=== PATIENT | male | born 1970 | race Caucasian/White ===

== ENCOUNTER 2018-11-27 20:47 | Emergency (ER) | payer OTHER ==
[2018-11-27 21:05] VITALS: BP 179/84; PULSE 71; RESP 18; TEMP 98.1
--- NOTE | 2018-11-27 21:18 | XR ---
EXAMINATION TYPE: XR shoulder complete RT DATE OF EXAM: 11/27/2018 CLINICAL HISTORY: Right shoulder pain after fall TECHNIQUE: Three views of the right shoulder are obtained. COMPARISON: None. FINDINGS: There is no acute fracture/dislocation evident in the right shoulder. The acromioclavicul ar and glenohumeral joint spaces are aligned however there are small marginal osteophytes of the acro mioclavicular joint. Punctate nonspecific sclerotic focus of the humeral head most commonly relates t o a benign bone island. The visualized ribs are intact and unremarkable. IMPRESSION: There is no acute fracture or dislocation in the right shoulder. Mild acromioclavicular arthropathy.
--- NOTE | 2018-11-27 21:42 | ED ---
General Adult HPI - General Chief complaint: Extremity Injury, Upper Stated complaint: Shoulder injury Time Seen by Provider: 11/27/18 21:01 Source: patient Mode of arrival: ambulatory Limitations: no limitations - History of Present Illness Initial comments: Patient is a 48-year-old male presenting to emergency Department with a chief complaint of right shoulder pain. Patient reports he was walking and he tripped and fell forward on a fire pit Injuring his right shoulder. Patient reports pain along the lateral aspect of the deltoid muscle. Patient reports pain with abduction but is able to perform flexion and extension. Patient denies any numbness and tingling. Patient reports the pain is exacerbated with abduction alleviated at rest. Patient reports taking [id number] analgesics minimal purulent. - Related Data Previous Rx's Medication Instructions Recorded Acetaminophen-Codeine 300-30mg 1 each PO Q4H PRN #20 tablet 04/19/15 [Tylenol w/codeine #3] Naproxen [Naprosyn] 500 mg PO Q12HR #24 tab 04/19/15 Allergies Allergy/AdvReac Type Severity Reaction Status Date / Time No Known Allergies Allergy Verified 04/19/15 10:04 Review of Systems ROS Statement: Those systems with pertinent positive or pertinent negative responses have been documented in the HPI. ROS Other: All systems not noted in ROS Statement are negative. Past Medical History Past Medical History: No Reported History History of Any Multi-Drug Resistant Organisms: None Reported Past Surgical History: No Surgical Hx Reported Additional Past Surgical History / Comment(s): neck Past Psychological History: No Psychological Hx Reported Smoking Status: Current every day smoker Past Alcohol Use History: None Reported Past Drug Use History: None Reported General Exam Limitations: no limitations General appearance: alert, in no apparent distress Head exam: Present: atraumatic, normocephalic, normal inspection Eye exam: Present: normal appearance, PERRL, EOMI Pupils: Present: normal accommodation ENT exam: Present: normal exam, normal oropharynx, mucous membranes moist, TM's normal bilaterally, normal external ear exam Neck exam: Present: normal inspection, full ROM Respiratory exam: Present: normal lung sounds bilaterally Cardiovascular Exam: Present: regular rate, normal rhythm, normal heart sounds Extremities exam: Present: normal inspection, tenderness (Tenderness along the lateral aspect of the deltoid right), normal capillary refill, other (+2 ulnar and radial pulses bilaterally). Absent: full ROM (Limited range of motion with abduction of the right shoulder) Back exam: Present: normal inspection, full ROM Neurological exam: Present: alert, oriented X3 Psychiatric exam: Present: normal affect, normal mood Skin exam: Present: warm, intact, normal color Course Vital Signs 11/27/18 21:01 Temperature 98.1 F Pulse Rate 71 Respiratory 18 Rate Blood Pressure 179/84 O2 Sat by Pulse 97 Oximetry Medical Decision Making - Medical Decision Making Patient is a 48-year-old male presenting to emergency Department with a chief complaint of right shoulder pain. Mild acromioclavicular arthropathy is noted on x-ray of the right shoulder but no fracture or dislocations. Patient advised to alternate between Tylenol and ibuprofen for pain control. Patient advised to follow with orthopedics if symptoms not improved. Strict return parameters were thoroughly discussed the patient was understanding and agreeable. Case discussed physician. Disposition Clinical Impression: Shoulder pain, right Disposition: HOME SELF-CARE Condition: Stable Instructions (If sedation given, give patient instructions): Shoulder Pain (ED) Additional Instructions: Alternate between Tylenol and ibuprofen for pain control. Please follow up with orthopedics. Please return to emergency department if symptoms worsen. Is patient prescribed a controlled substance at d/c from ED?: No Referrals: None,Stated [Primary Care Provider] - 1-2 days Nahum Moody DO [Medical Doctor] - 1-2 days Time of Disposition: 21:42
== END 2018-11-27 21:58 | disposition home or self-care (01) ==
LOC: EC 20:47
DX: M19.011 Primary osteoarthritis, right shoulder (principal); F17.200 Nicotine dependence, unspecified, uncomplicated; W01.0XXA Fall on same level from slipping, tripping and stumbling without subsequent striking against object, initial encounter; Y93.89 Activity, other specified; Y92.89 Other specified places as the place of occurrence of the external cause
CPT/HCPCS: 99283

== ENCOUNTER → 2020-03-15 | Outpatient (CLI) | payer OTHER ==
--- NOTE | 2020-03-15 14:26 | MR ---
EXAMINATION TYPE: MR knee RT wo con DATE OF EXAM: 03/15/2020 COMPARISON: None HISTORY: Right knee pain TECHNIQUE: Multiplanar, multisequence images of the knee is performed .. FINDINGS: MEDIAL MENISCUS: Anterior and posterior horns are intact without tear. LATERAL MENISCUS: Anterior and posterior horns are intact without tear. CRUCIATE LIGAMENTS: The anterior and posterior cruciate ligaments are intact and unremarkable. COLLATERAL LIGAMENTS: The medial collateral ligament and lateral collateral ligament complex are inta ct and unremarkable. EXTENSOR MECHANISM: Visualized quadriceps and patellar tendons are intact. EFFUSION: No significant suprapatellar joint effusion. POPLITEAL CYST: No popliteal/randall cyst. TRICOMPARTMENT SPACES: Intact CARTILAGE: Intact BONE MARROW SIGNAL: No focal abnormal marrow signal is appreciated. OTHER: No additional significant abnormality is appreciated. IMPRESSION: No distinct abnormality appreciated.
== END | disposition home or self-care (01) ==
LOC: RADMRIMAIN 13:14
PROVIDERS: ATTEND Orthopaedic Surgery
DX: M25.561 Pain in right knee (principal)

== ENCOUNTER 2020-04-22 10:26 | Emergency (ER) | payer OTHER ==
[2020-04-22 10:32] VITALS: PULSE 82; RESP 18; TEMP 98.5
--- NOTE | 2020-04-22 11:06 | ED ---
Upper Extremity HPI - General Chief Complaint: Extremity Injury, Upper Stated Complaint: Wrist pain Time Seen by Provider: 04/22/20 10:42 Source: patient, RN notes reviewed Mode of arrival: ambulatory Limitations: no limitations - History of Present Illness Initial Comments: 49-year-old male presents emergency Department chief complaint of left wrist pa in. Patient states he woke up with this felt that he did something during his sleep. Patient states he is right-hand dominant but complains of swelling, bump on his left wrist which is severely tender. Patient denies any paresthesias no decreased strength. Patient offers no other complaints. - Related Data Previous Rx's Medication Instructions Recorded Ibuprofen [Motrin] 600 mg PO Q8HR PRN #20 tab 04/22/20 Allergies Allergy/AdvReac Type Severity Reaction Status Date / Time No Known Allergies Allergy Verified 04/22/20 10:51 Review of Systems ROS Statement: Those systems with pertinent positive or pertinent negative responses have been documented in the HPI. ROS Other: All systems not noted in ROS Statement are negative. Past Medical History Past Medical History: No Reported History Additional Past Medical History / Comment(s): Arthritis History of Any Multi-Drug Resistant Organisms: None Reported Past Surgical History: No Surgical Hx Reported Additional Past Surgical History / Comment(s): neck Past Psychological History: No Psychological Hx Reported Smoking Status: Never smoker Past Alcohol Use History: None Reported Past Drug Use History: None Reported General Exam Limitations: no limitations General appearance: alert, in no apparent distress Head exam: Present: atraumatic, normocephalic, normal inspection Eye exam: Present: normal appearance, PERRL, EOMI. Absent: scleral icterus, conjunctival injection, periorbital swelling Respiratory exam: Present: normal lung sounds bilaterally. Absent: respiratory distress, wheezes, rales, rhonchi, stridor Cardiovascular Exam: Present: regular rate, normal rhythm, normal heart sounds. Absent: systolic murmur, diastolic murmur, rubs, gallop, clicks Extremities exam: Present: other (There is tenderness with palpation of the left wrist there is a small ganglion cyst which is palpable, tender with palpation radial pulses equal bilaterally.) Course Vital Signs 04/22/20 10:27 Temperature 98.5 F Pulse Rate 82 Respiratory 18 Rate Blood Pressure 217/95 O2 Sat by Pulse 95 Oximetry - Reevaluation(s) Reevaluation #1: 04/22/20 11:06 Patient noted to have hypertension. Patient has no chest pain or shortness breath. Medical Decision Making - Medical Decision Making X-ray reviewed there is no acute osseous lesion. Patient has left wrist injury with no complaints. Patient will be discharged in stable condition return parameters were discussed. Disposition Clinical Impression: Left wrist pain, Ganglion cyst of dorsum of left wrist Disposition: HOME SELF-CARE Condition: Stable Instructions (If sedation given, give patient instructions): Ganglion Cysts (ED) Additional Instructions: Please return to the Emergency Department if symptoms worsen or any other concerns. Prescriptions: Ibuprofen [Motrin] 600 mg PO Q8HR PRN #20 tab PRN Reason: Pain Is patient prescribed a controlled substance at d/c from ED?: No Referrals: Augusta Shah MD [Primary Care Provider] - 1-2 days Kade Crabtree DO [Doctor of Osteopathic Medicine] - 1-2 days Time of Disposition: 11:23
--- NOTE | 2020-04-22 11:13 | XR ---
EXAMINATION TYPE: XR wrist complete LT DATE OF EXAM: 04/22/2020 CLINICAL HISTORY: Left wrist pain. TECHNIQUE: Frontal, lateral and oblique images of the left wrist are obtained. 4 view scaphoid view is performed. COMPARISON: None FINDINGS: There is no acute fracture/dislocation evident in the left wrist. The joint spaces in the left wrist appear within normal limits. The overlying soft tissue appears unremarkable. No suspicio us focal osseous lytic or sclerotic lesion is IMPRESSION: As above.
[2020-04-22 11:51] VITALS: BP 158/88
== END 2020-04-22 11:51 | disposition home or self-care (01) ==
LOC: EC 10:26
DX: M67.432 Ganglion, left wrist (principal); S69.92XA Unspecified injury of left wrist, hand and finger(s), initial encounter; X58.XXXA Exposure to other specified factors, initial encounter
CPT/HCPCS: 99283

== ENCOUNTER 2020-06-06 10:52 | Day surgery (SDC) | payer OTHER ==
[2020-06-04 12:56] VITALS: BMI 34.7
--- NOTE | 2020-06-05 17:59 | HP ---
HISTORY AND PHYSICAL DATE OF SURGERY: 06/06/2020 Abby Deluca is a 49-year-old gentleman seen with progressive right knee pain. After treatment options were discussed, he elected to proceed with arthroscopy. Consent was obtained. PAST MEDICAL HISTORY: Asthma. PAST SURGICAL HISTORY: Noncontributory. DAILY MEDICATIONS: Ibuprofen. ALLERGIES: NONE. SOCIAL HISTORY: He denies tobacco use. PHYSICAL EVALUATION OF THE RIGHT KNEE: Range of motion is zero to 130. Mild effusion. Tenderness, medial joint line. Positive medial Taj's. Ligaments stable. Hip rotation without pain. Distal neurovascular exam intact. RADIOGRAPHS: Radiographs of the right knee revealed mild osteoarthritis. MRI of the right knee revealed no abnormality. IMPRESSION: 1. Internal derangement of the right knee with osteochondral tear. 2. Asthma. PLAN: Right knee arthroscopy with chondroplasty and debridement. MMODL / IJN: [id number] /
[~2020-06-06 10:52] MED LIST: DEXAMETHASONE SOD PHOSPHATE 4 MG/ML 1 ML VIAL IV ONE; HYDROmorphone 0.5 MG/0.5 ML SYRINGE IVP PRN; LACTATED RINGERS 1,000 ML IV SCH; ONDANSETRON 4 MG/2 ML VIAL IVP ONE
[2020-06-06] MEDS ORDERED: LIDOCAINE 1% (10MG/ML) FOR IV START INTRADERMA ONE (11:41)
[2020-06-06] MEDS ORDERED: LIDOCAINE 1% INJ 10MG/ML (20 ML MDV) ONE (13:07)
[2020-06-06] MEDS ORDERED: MIDAZOLAM 2 MG/2 ML VIAL ONE (13:07)
[2020-06-06] MEDS ORDERED: PROPOFOL 10 MG/ML 20 ML VIAL IV ONE (13:07)
[2020-06-06] MEDS ORDERED: fentaNYL (PF) 50 MCG/ML 2 ML AMP ONE (13:07)
[2020-06-06] MEDS ORDERED: SUCCINYLCHOLINE CHLORIDE 100 MG/5 ML SYR IV ONE (13:07)
[2020-06-06] MEDS ORDERED: BUPIVACAINE (PF) 0.25% 30 ML VIAL INTRAARTIC ONE (13:28)
[2020-06-06 14:03] VITALS: TEMP 98.3
[2020-06-06] MEDS ORDERED: KETOROLAC 15 MG/ML 1 ML VIAL IVP ONE (14:03)
--- NOTE | 2020-06-06 14:06 | P.OP ---
Date of Procedure: 06/06/20 Preoperative Diagnosis: Internal derangement right knee Postoperative Diagnosis: 1. Tear lateral meniscus right knee 2. Grade 4 chondromalacia lateral femoral condyle right knee 3. Reactive synovitis medial, lateral and suprapatellar compartments right knee Procedure(s) Performed: 1. Arthroscopic partial lateral meniscectomy right knee 2. Arthroscopic chondroplasty lateral femoral condyle right knee 3. Arthroscopic microfracture lateral femoral condyle right knee 4. Arthroscopic partial synovectomy medial, lateral and suprapatellar compartments right knee Anesthesia: JOVAN, local Surgeon: Georgi Davis Estimated Blood Loss (ml): 7 Pathology: none sent Condition: stable Disposition: PACU Indications for Procedure: 49-year-old patient seen with progressive right knee pain. After having treatment options discussed, he elected to proceed with arthroscopy. Operative Findings: See description of procedure Description of Procedure: Patient was taken to the operative suite. Patient underwent a general anest hetic by the department of anesthesia. Patient was given preoperative antibiotics. The right lower extremity was placed in a well-padded arthroscopic leg tanner. The right leg was prepped and draped in the normal sterile orthopedic fashion. A lateral parapatellar and suprapatellar incision was made. Trochars were inserted. Arthroscopy was initiated. Suprapatellar pouch revealed diffuse thick reactive synovitis. The patellofemoral joint appeared to articulate congruently. There was no chondromalacia present of the patellofemoral sulcus. The scope was guided into the medial gutter. No loose bodies or plica were identified. The scope was then guided into the medial compartment. A medial parapatellar incision was made. Trocar inserted followed by probe. Medial meniscus was probed and found to be stable. There was some reactive synovitis anteriorly. There was no chondromalacia present. I introduced a motorized shaver and performed a partial synovectomy. There appeared be good decompression of the synovitis. Scope and probe were then guided into the intercondylar notch. Cruciates were identified, probed and found to be stable. The scope and probe were then guided into lateral compartment. There was a radial tear mid body lateral meniscus. There was an area of grade 3/4 chondromalacia weightbearing surface lateral femoral condyle. This measured approximately 1 cm diameter. There was thick reactive synovitis anteriorly. I performed a partial lateral meniscectomy. I performed a partial synovectomy decompressing the reactive synovitis. I performed a chondroplasty lateral femoral condyle. The residual meniscus was stable. There was good decompression synovitis. In that area of chondromalacia I did see a small area of exposed bone centrally. I performed a microfracture that area penetrating the bone with resultant bleeding at the microfracture site. The residual osteochondral surface remained stable. The scope was in guided back into the suprapatellar compartment. I introduced a motorized shaver into the superpatellar compartment. I performed a partial synovectomy. Shaver was removed. There was good decompression synovitis. Instruments were now removed from the joint. The joint was infiltrated with .25% Marcaine. Steri-Strips were applied to the portal sites. Sterile dressings were applied. The patient was placed into a BITA hose. No tourniquet was utilized. The patient was awakened, transferred to a bed and taken to recovery stable satisfactory condition.
[2020-06-06] MEDS ORDERED: LACTATED RINGERS 1,000 ML IV ONE (14:25)
[2020-06-06] MEDS ORDERED: HYDROcodone/APAP 7.5-325MG 1 EACH TAB ONE (14:51)
[2020-06-06] MEDS ORDERED: HYDROcodone/APAP 7.5-325MG 1 EACH TAB PO ONE (14:53)
[2020-06-06 15:19] VITALS: BP 123/58; PULSE 73; RESP 16
== END 2020-06-06 15:49 | disposition home or self-care (01) ==
LOC: OR 10:52
PROVIDERS: ATTEND Orthopaedic Surgery
DX: M23.200 Derangement of unspecified lateral meniscus due to old tear or injury, right knee (principal); M94.261 Chondromalacia, right knee; M65.862 Other synovitis and tenosynovitis, left lower leg; J45.909 Unspecified asthma, uncomplicated; Z87.891 Personal history of nicotine dependence; Z79.1 Long term (current) use of non-steroidal anti-inflammatories (NSAID); Z79.899 Other long term (current) drug therapy
CPT/HCPCS: 29881; 29879; 29876; J2250; J1100; J0690; J2405; J2001; J3010; J1885; J0330; J2704

== ENCOUNTER 2021-02-05 14:16 | Emergency (ER) | payer OTHER ==
[2021-02-05] MEDS ORDERED: SODIUM CHLORIDE 0.9% 1,000 ML IV STA (17:41)
[2021-02-05] MEDS ORDERED: MORPHINE SULFATE 4 MG/ML SYRINGE IV STA (17:41)
[2021-02-05 18:30] LABS: Calcium 8.7 mg/dL (8.4-10.2); Potassium 3.9 mmol/L (3.5-5.1); Total Bilirubin 0.7 mg/dL (0.2-1.3)
[2021-02-05 18:34] LABS: Basophils % (A) 1 %; Eosinophils # (A) 0.1 k/uL (0-0.7); Eosinophils % (A) 2 %; HCT 40.3 % (39.0-53.0); HGB 14.4 gm/dL (13.0-17.5); Hyperchromasia Slight; Lymphocytes # (A) 0.6 k/uL (1.0-4.8); Lymphocytes % (A) 15 %; MCH 31.6 pg (25.0-35.0); MCHC 35.7 g/dL (31.0-37.0); MCV 88.5 fL (80.0-100.0); Mean Platelet Volume 7.8; Monocytes # (A) 0.7 k/uL (0-1.0); Monocytes % (A) 16 %; Neutrophils # (A) 2.7 k/uL (1.3-7.7); Neutrophils % (A) 64 %; Platelet Count 209 k/uL (150-450); RBC 4.55 m/uL (4.30-5.90); RDW 13.2 % (11.5-15.5); WBC 4.2 k/uL (3.8-10.6)
[2021-02-05 18:46] LABS: Appearance,Urine Clear (Clear); Bilirubin,Urine Negative (Negative); Blood,Urine Negative (Negative); Color,Urine Yellow; Glucose,Urine (UA) Negative (Negative); Ketones,Urine Negative (Negative); Leukocyte Esterase,Urine Negative (Negative); Nitrite,Urine Negative (Negative); Protein,Urine Negative (Negative); Specific Gravity,Urine 1.013 (1.001-1.035); Urobilinogen,Urine <2.0 mg/dL (<2.0)
[2021-02-05] MEDS ORDERED: IBUPROFEN 600 MG TAB PO STA (18:53)
[2021-02-05] MEDS ORDERED: ACETAMINOPHEN TAB 500 MG TAB PO STA (18:53)
--- NOTE | 2021-02-05 18:53 | CT ---
EXAMINATION TYPE: CT abdomen pelvis wo con DATE OF EXAM: 02/05/2021 COMPARISON: None HISTORY: Right flank pain, fever. CT DLP: 875.7 mGycm Automated exposure control for dose reduction was used. Images obtained from the diaphragm to the floor the pelvis with no contrast. Lung bases are clear. There is no pleural effusion. Heart size is normal. There is no pericardial eff usion. Liver spleen stomach pancreas gallbladder appear intact. Bile ducts are not dilated. There is no adrenal mass. Kidneys show normal size and contour. There is no hydronephrosis. Ureters a re not dilated. There is no retroperitoneal adenopathy. There is no evidence of thickened appendix. There is no mesenteric edema. There is no ascites or free air. There is no bowel obstruction. There is no evidence of a pelvic mass. Bladder distends smoothly. There is no inguinal hernia. There is tiny amount of free fluid in the pelvis. The lumbar vertebra have normal alignment. Posterior elements are intact. There is no compression fra cture. Bony pelvis is intact. The hip joints are intact. IMPRESSION: There is tiny amount of low-density free fluid in the pelvis of uncertain significance. No focal inte stinal abnormality identified. No evidence of renal stone or obstruction. No sign of appendicitis.
--- NOTE | 2021-02-05 18:55 | ED ---
General Adult HPI - General Chief complaint: Back Pain/Injury Stated complaint: Kidney pain Time Seen by Provider: 02/05/21 17:11 Source: patient Mode of arrival: ambulatory Limitations: no limitations - History of Present Illness Initial comments: 50-year-old male presents to the emergency room for a chief complaint of right lower back pain. Patient states this started today. States it does hurt with movement. Patient states he was concerned he had a kidney infection or kidney stone. Patient denies fevers or chills however states he was exposed to [place] virus this week by a family member. Patient denies bladder or bowel changes, saddle anesthesia, weakness of the legs. Patient denies any history of IV drug abuse.Patient has no other complaints at this time including shortness of breath, chest pain, abdominal pain, nausea or vomiting, headache, or visual changes. - Related Data Home Medications Medication Instructions Recorded Confirmed Lisinopril [Prinivil] 10 mg PO DAILY 06/04/20 06/06/20 Previous Rx's Medication Instructions Recorded Ibuprofen [Motrin] 600 mg PO Q8HR PRN #20 tab 04/22/20 HYDROcodone/APAP 7.5-325MG [Grover 1 each PO Q6HR PRN #15 tab 06/06/20 7.5] Allergies Allergy/AdvReac Type Severity Reaction Status Date / Time No Known Allergies Allergy Verified 02/05/21 15:42 Review of Systems ROS Statement: Those systems with pertinent positive or pertinent negative responses have been documented in the HPI. ROS Other: All systems not noted in ROS Statement are negative. Past Medical History Past Medical History: Hypertension Additional Past Medical History / Comment(s): arthritis History of Any Multi-Drug Resistant Organisms: None Reported Past Surgical History: No Surgical Hx Reported Additional Past Surgical History / Comment(s): neck surgery Past Psychological History: No Psychological Hx Reported Smoking Status: Never smoker Past Alcohol Use History: None Reported Past Drug Use History: None Reported General Exam Limitations: no limitations General appearance: alert, in no apparent distress Head exam: Present: atraumatic Eye exam: Present: normal appearance, PERRL, EOMI ENT exam: Present: normal exam, mucous membranes moist Neck exam: Present: normal inspection, full ROM. Absent: tenderness Respiratory exam: Present: normal lung sounds bilaterally. Absent: respiratory distress, wheezes Cardiovascular Exam: Present: regular rate, normal rhythm, normal heart sounds GI/Abdominal exam: Present: soft, normal bowel sounds. Absent: distended, tenderness Back exam: Absent: CVA tenderness (R), CVA tenderness (L) Neurological exam: Present: alert Course Vital Signs 02/05/21 15:42 Temperature 100.5 F H Pulse Rate 82 Respiratory 20 Rate Blood Pressure 144/69 O2 Sat by Pulse 96 Oximetry Medical Decision Making - Medical Decision Making Vitals are stable however patient does have a fever of 100.5. Patient has right-sided low back pain. No midline pain. No red flag symptoms. Fever can be attributed to patient's positive coronavirus testing as he was exposed this week. CBC CMP and a remarkable. White count is normal. Urinalysis does not show any evidence of infection. There is no evidence of renal stone or obstruction on CT. At this time discussed antibody infusion and patient does agree to this. Patient likely is mechanical back pain as well as coronavirus causing fever. He will be discharged home with strict return parameters. - Lab Data Result diagrams: 02/05/21 18:02 02/05/21 18:02 Lab Results 02/05/21 02/05/21 02/05/21 Range/Units 18:02 18:02 18:02 WBC 4.2 (3.8-10.6) k/uL RBC 4.55 (4.30-5.90) m/uL Hgb 14.4 (13.0-17.5) gm/dL Hct 40.3 (39.0-53.0) % MCV 88.5 (80.0-100.0) fL MCH 31.6 (25.0-35.0) pg MCHC 35.7 (31.0-37.0) g/dL RDW 13.2 (11.5-15.5) % Plt Count 209 (150-450) k/uL MPV 7.8 Neutrophils % 64 % Lymphocytes % 15 % Monocytes % 16 % Eosinophils % 2 % Basophils % 1 % Neutrophils # 2.7 (1.3-7.7) k/uL Lymphocytes # 0.6 L (1.0-4.8) k/uL Monocytes # 0.7 (0-1.0) k/uL Eosinophils # 0.1 (0-0.7) k/uL Basophils # 0.0 (0-0.2) k/uL Hyperchromasia Slight Sodium 134 L (137-145) mmol/L Potassium 3.9 (3.5-5.1) mmol/L Chloride 102 (98-107) mmol/L Carbon Dioxide 24 (22-30) mmol/L Anion Gap 8 mmol/L BUN 14 (9-20) mg/dL Creatinine 1.20 (0.66-1.25) mg/dL Est GFR (CKD-EPI)AfAm 81 (>60 ml/min/1.73 sqM) Est GFR (CKD-EPI)NonAf 70 (>60 ml/min/1.73 sqM) Glucose 127 H (74-99) mg/dL Calcium 8.7 (8.4-10.2) mg/dL Total Bilirubin 0.7 (0.2-1.3) mg/dL AST 25 (17-59) U/L ALT 28 (4-49) U/L Alkaline Phosphatase 68 (38-126) U/L Total Protein 7.0 (6.3-8.2) g/dL Albumin 4.0 (3.5-5.0) g/dL Urine Color Urine Appearance (Clear) Urine pH (5.0-8.0) Ur Specific [place] (1.001-1.035) Urine Protein (Negative) Urine Glucose (UA) (Negative) Urine Ketones (Negative) Urine Blood (Negative) Urine Nitrite (Negative) Urine Bilirubin (Negative) Urine Urobilinogen (<2.0) mg/dL Ur Leukocyte Esterase (Negative) Coronavirus (PCR) Detected A (Not Detectd) 02/05/21 Range/Units 18:43 WBC (3.8-10.6) k/uL RBC (4.30-5.90) m/uL Hgb (13.0-17.5) gm/dL Hct (39.0-53.0) % MCV (80.0-100.0) fL MCH (25.0-35.0) pg MCHC (31.0-37.0) g/dL RDW (11.5-15.5) % Plt Count (150-450) k/uL MPV Neutrophils % % Lymphocytes % % Monocytes % % Eosinophils % % Basophils % % Neutrophils # (1.3-7.7) k/uL Lymphocytes # (1.0-4.8) k/uL Monocytes # (0-1.0) k/uL Eosinophils # (0-0.7) k/uL Basophils # (0-0.2) k/uL Hyperchromasia Sodium (137-145) mmol/L Potassium (3.5-5.1) mmol/L Chloride (98-107) mmol/L Carbon Dioxide (22-30) mmol/L Anion Gap mmol/L BUN (9-20) mg/dL Creatinine (0.66-1.25) mg/dL Est GFR (CKD-EPI)AfAm (>60 ml/min/1.73 sqM) Est GFR (CKD-EPI)NonAf (>60 ml/min/1.73 sqM) Glucose (74-99) mg/dL Calcium (8.4-10.2) mg/dL Total Bilirubin (0.2-1.3) mg/dL AST (17-59) U/L ALT (4-49) U/L Alkaline Phosphatase (38-126) U/L Total Protein (6.3-8.2) g/dL Albumin (3.5-5.0) g/dL Urine Color Yellow Urine Appearance Clear (Clear) Urine pH 6.0 (5.0-8.0) Ur Specific [place] 1.013 (1.001-1.035) Urine Protein Negative (Negative) Urine Glucose (UA) Negative (Negative) Urine Ketones Negative (Negative) Urine Blood Negative (Negative) Urine Nitrite Negative (Negative) Urine Bilirubin Negative (Negative) Urine Urobilinogen <2.0 (<2.0) mg/dL Ur Leukocyte Esterase Negative (Negative) Coronavirus (PCR) (Not Detectd) Disposition Clinical Impression: COVID-19, Mechanical back pain Disposition: HOME SELF-CARE Condition: Good Instructions (If sedation given, give patient instructions): Acute Low Back Pain (ED), Coronavirus Disease 2019 (COVID-19) Additional Instructions: Please take vitamin C, D, and zinc [id number]. Drink plenty of fluids. Take Tylenol for fevers. If this does not help he can add Motrin. Follow-up with your doctor. If you have worsening symptoms of shortness of breath return to the emergency room. Is patient prescribed a controlled substance at d/c from ED?: No Referrals: Augusta Shah MD [Primary Care Provider] - 1-2 days Time of Disposition: 18:56
[2021-02-05] MEDS ORDERED: CASIRIVIMAB (REGN10933) (EUA) 600 MG, IMDEVIMAB (REGN10987) (EUA) 600 MG in SODIUM CHLO... IVPB ONE (19:30)
[2021-02-05] MEDS ORDERED: SODIUM CHLORIDE 0.9% 50 ML IVPB ONE (20:00)
[2021-02-05 21:17] VITALS: BP 145/88; PULSE 88; RESP 19; TEMP 98.8
== END 2021-02-05 21:17 | disposition home or self-care (01) ==
LOC: EC 14:16
DX: U07.1 COVID-19 (principal); I10 Essential (primary) hypertension; Z87.442 Personal history of urinary calculi
CPT/HCPCS: 99284 ×2; 96365; 96375 ×2; 96361 ×2; 36415; 80053; 85025; 81003; 87635; 74176; M0243; J2270; Q0243

== ENCOUNTER 2021-05-01 08:33 | Emergency (ER) | payer OTHER ==
[2021-05-01 08:39] VITALS: TEMP 98.7
[2021-05-01] MEDS ORDERED: IPRATROPIUM-ALBUTEROL 3 ML NEB INHALATION STA (09:09)
--- NOTE | 2021-05-01 09:22 | ED ---
URI HPI - General Chief Complaint: Upper Respiratory Infection Stated Complaint: JODIE Time Seen by Provider: 05/01/21 08:42 Source: patient, RN notes reviewed Mode of arrival: ambulatory Limitations: no limitations - History of Present Illness Initial Comments: Is a 50-year-old male presents emergency Department with chief complaint of cough congestion. Patient states started last few days. He has increasing nasal congestion, sore throat and productive cough. Patient states it: Depression 3 months ago. He reports no recent fever or chills mild body aches. Patient states she's felt short of breath with no chest pain or palpitations. Patient is a former smoker does have a history of asthma. - Related Data Home Medications Medication Instructions Recorded Confirmed Lisinopril [Prinivil] 10 mg PO DAILY 06/04/20 05/01/21 Diclofenac Sodium [Voltaren] 75 mg PO BID 05/01/21 05/01/21 Pantoprazole [Protonix] 40 mg PO DAILY 05/01/21 05/01/21 Previous Rx's Medication Instructions Recorded Albuterol Sulfate [Proair Hfa] 1 - 2 puff INHALATION Q4HR PRN 05/01/21 #8.5 gm Azithromycin [Zithromax Z-pack (6 0 mg PO DIRECTED #1 packet 05/01/21 tabs)] predniSONE 50 mg PO DAILY #5 tab 05/01/21 Allergies Allergy/AdvReac Type Severity Reaction Status Date / Time No Known Allergies Allergy Verified 05/01/21 09:01 Review of Systems ROS Statement: Those systems with pertinent positive or pertinent negative responses have been documented in the HPI. ROS Other: All systems not noted in ROS Statement are negative. Past Medical History Past Medical History: Hypertension Additional Past Medical History / Comment(s): arthritis History of Any Multi-Drug Resistant Organisms: None Reported Past Surgical History: No Surgical Hx Reported Additional Past Surgical History / Comment(s): neck surgery Past Psychological History: No Psychological Hx Reported Smoking Status: Never smoker Past Alcohol Use History: None Reported Past Drug Use History: None Reported General Exam Limitations: no limitations General appearance: alert, in no apparent distress Head exam: Present: atraumatic, normocephalic, normal inspection Eye exam: Present: normal appearance, PERRL, EOMI. Absent: scleral icterus, conjunctival injection, periorbital swelling ENT exam: Present: normal exam, normal oropharynx, mucous membranes moist Neck exam: Present: normal inspection, full ROM. Absent: tenderness, meningismus, lymphadenopathy Respiratory exam: Present: wheezes. Absent: normal lung sounds bilaterally, respiratory distress, rales, rhonchi, stridor Cardiovascular Exam: Present: regular rate, normal rhythm, normal heart sounds. Absent: systolic murmur, diastolic murmur, rubs, gallop, clicks Course Vital Signs 05/01/21 05/01/21 05/01/21 08:36 08:51 10:14 Temperature 98.7 F Pulse Rate 82 64 Respiratory 18 20 16 Rate Blood Pressure 138/70 O2 Sat by Pulse 97 Oximetry 05/01/21 05/01/21 10:21 10:25 Temperature Pulse Rate 66 75 Respiratory 16 20 Rate Blood Pressure 132/87 O2 Sat by Pulse 96 Oximetry Medical Decision Making - Medical Decision Making Patient felt improved after DuoNeb treatment. Patient is covid Negative, and influenza negative. Patient discharged in stable condition. - Lab Data Lab Results 05/01/21 05/01/21 Range/Units 08:47 08:47 Coronavirus (PCR) Not Detected (Not Detectd) Influenza Type A RNA Not Detected (Not Detectd) Influenza Type B (PCR) Not Detected (Not Detectd) Disposition Clinical Impression: Asthmatic bronchitis Disposition: HOME SELF-CARE Condition: Stable Instructions (If sedation given, give patient instructions): Upper Respiratory Infection (ED) Additional Instructions: Please return to the Emergency Department if symptoms worsen or any other concerns. Prescriptions: predniSONE 50 mg PO DAILY #5 tab Albuterol Sulfate [Proair Hfa] 1 - 2 puff INHALATION Q4HR PRN #8.5 gm PRN Reason: difficulty in breathing Azithromycin [Zithromax Z-pack (6 tabs)] 0 mg PO DIRECTED #1 packet Is patient prescribed a controlled substance at d/c from ED?: No Referrals: Augusta Shah MD [Primary Care Provider] - 1-2 days Time of Disposition: 11:16
--- NOTE | 2021-05-01 09:28 | XR ---
EXAMINATION TYPE: XR chest 2V DATE OF EXAM: 05/01/2021 COMPARISON: NONE HISTORY: Cough and shortness of breath. TECHNIQUE: Frontal and lateral views of the chest are obtained. FINDINGS: There is no suspicious focal air space opacity, pleural effusion, or pneumothorax seen. T he cardiac silhouette size is within normal limits. Anterior fusion plate cervical thoracic junction noted. IMPRESSION: No acute pulmonary process.
[2021-05-01 10:26] VITALS: BP 132/87; PULSE 75; RESP 20
== END 2021-05-01 11:23 | disposition home or self-care (01) ==
LOC: EC 08:33
DX: J45.909 Unspecified asthma, uncomplicated (principal); I10 Essential (primary) hypertension; Z20.822 Contact with and (suspected) exposure to COVID-19
CPT/HCPCS: 71046; 87502; 87635; 94640; 99285

== ENCOUNTER 2021-12-24 20:37 | Emergency (ER) | payer OTHER ==
[2021-12-24 20:44] VITALS: BP 170/71; RESP 16; TEMP 98
[2021-12-24] MEDS ORDERED: SODIUM CHLORIDE 0.9% 1,000 ML IV STA (22:29)
[2021-12-24] MEDS ORDERED: MORPHINE SULFATE 4 MG/ML SYRINGE IVP STA (22:29)
--- NOTE | 2021-12-24 22:31 | ED ---
SOB HPI - General Chief Complaint: Shortness of Breath Stated Complaint: Difficulty breathing; sharp pain in back Time Seen by Provider: 12/24/21 22:29 Source: patient, RN notes reviewed, old records reviewed Mode of arrival: ambulatory Limitations: no limitations - History of Present Illness Initial Comments: This is a 51-year-old male DF for evaluation patient Dese for evaluation multiple complaints shortness of breath and chest pain. The chest pain is pretty severe radiating to his back noted prior similar pain before the past. Positive nausea no vomiting no recent fever cough or congestion of travel history or sick contacts. Patient does have high blood pressure MD Complaint: shortness of breath, chest pain -: hour(s) Radiation: back Severity: moderate Severity scale (1-10): 7 Quality: sharp Consistency: constant Improves With: nothing Worsens With: nothing, exertion Associated Symptoms: chest pain - Related Data Home Medications Medication Instructions Recorded Confirmed lisinopriL [Prinivil] 10 mg PO DAILY 06/04/20 05/01/21 Diclofenac Sodium [Voltaren] 75 mg PO BID 05/01/21 05/01/21 Pantoprazole [Protonix] 40 mg PO DAILY 05/01/21 05/01/21 Previous Rx's Medication Instructions Recorded Albuterol Sulfate [Proair Hfa] 1 - 2 puff INHALATION Q4HR PRN 05/01/21 #8.5 gm Azithromycin [Zithromax Z-pack (6 0 mg PO DIRECTED #1 packet 05/01/21 tabs)] predniSONE 50 mg PO DAILY #5 tab 05/01/21 Sulfamethox-Tmp 800-160Mg [Bactrim 1 each PO Q12HR #14 tab 08/02/21 Ds] Allergies Allergy/AdvReac Type Severity Reaction Status Date / Time No Known Allergies Allergy Verified 12/24/21 20:40 Review of Systems ROS Statement: Those systems with pertinent positive or pertinent negative responses have been documented in the HPI. ROS Other: All systems not noted in ROS Statement are negative. Past Medical History Past Medical History: Hypertension Additional Past Medical History / Comment(s): arthritis History of Any Multi-Drug Resistant Organisms: None Reported Past Surgical History: No Surgical Hx Reported Additional Past Surgical History / Comment(s): neck surgery Past Psychological History: No Psychological Hx Reported Smoking Status: Never smoker Past Alcohol Use History: None Reported Past Drug Use History: None Reported General Exam Limitations: no limitations General appearance: alert, in no apparent distress Head exam: Present: atraumatic, normocephalic, normal inspection Eye exam: Present: normal appearance, PERRL, EOMI. Absent: scleral icterus, conjunctival injection, periorbital swelling ENT exam: Present: normal exam, mucous membranes moist Neck exam: Present: normal inspection. Absent: tenderness, meningismus, lymphadenopathy Respiratory exam: Present: normal lung sounds bilaterally. Absent: respiratory distress, wheezes, rales, rhonchi, stridor Cardiovascular Exam: Present: regular rate, normal rhythm, normal heart sounds. Absent: systolic murmur, diastolic murmur, rubs, gallop, clicks GI/Abdominal exam: Present: soft, normal bowel sounds. Absent: distended, tenderness, guarding, rebound, rigid Extremities exam: Present: normal inspection, full ROM, normal capillary refill. Absent: tenderness, pedal edema, joint swelling, calf tenderness Back exam: Present: normal inspection Neurological exam: Present: alert, oriented X3, CN II-XII intact Psychiatric exam: Present: normal affect, normal mood Skin exam: Present: warm, dry, intact, normal color. Absent: rash Course Vital Signs 12/24/21 12/24/21 12/24/21 20:40 23:19 23:24 Temperature 98 F Pulse Rate 65 65 69 Respiratory 16 Rate Blood Pressure 170/71 O2 Sat by Pulse 98 Oximetry - Reevaluation(s) Reevaluation #1: 12/24/21 22:31 Medical record is reviewed Reevaluation #2: 12/24/21 23:37 Patient symptoms are improved here in the ER Reevaluation #3: 12/24/21 23:37 Patient informed of results and questions answered Medical Decision Making - Medical Decision Making 51 male with some chest pain going to his back CT is negative for PE or dissection, patient has signs and symptoms of bronchitis will be placed on steroids breathing treatments and antibiotics and can be discharged home - Lab Data Result diagrams: 12/24/21 22:40 12/24/21 22:40 Lab Results 12/24/21 12/24/21 12/24/21 Range/Units 22:40 22:40 22:40 WBC 6.0 (3.8-10.6) k/uL RBC 4.23 L (4.30-5.90) m/uL Hgb 13.1 (13.0-17.5) gm/dL Hct 38.1 L (39.0-53.0) % MCV 90.1 (80.0-100.0) fL MCH 30.9 (25.0-35.0) pg MCHC 34.3 (31.0-37.0) g/dL RDW 12.9 (11.5-15.5) % Plt Count 274 (150-450) k/uL MPV 7.6 Neutrophils % 67 % Lymphocytes % 21 % Monocytes % 7 % Eosinophils % 2 % Basophils % 0 % Neutrophils # 4.0 (1.3-7.7) k/uL Lymphocytes # 1.3 (1.0-4.8) k/uL Monocytes # 0.4 (0-1.0) k/uL Eosinophils # 0.2 (0-0.7) k/uL Basophils # 0.0 (0-0.2) k/uL PT 10.1 (9.0-12.0) sec INR 0.9 (<1.2) APTT 23.7 (22.0-30.0) sec D-Dimer 0.32 (<0.60) mg/L FEU Sodium 138 (137-145) mmol/L Potassium 3.9 (3.5-5.1) mmol/L Chloride 102 (98-107) mmol/L Carbon Dioxide 27 (22-30) mmol/L Anion Gap 9 mmol/L BUN 22 H (9-20) mg/dL Creatinine 1.12 (0.66-1.25) mg/dL Est GFR (CKD-EPI)AfAm 88 (>60 ml/min/1.73 sqM) Est GFR (CKD-EPI)NonAf 76 (>60 ml/min/1.73 sqM) Glucose 115 H (74-99) mg/dL Calcium 8.8 (8.4-10.2) mg/dL Magnesium 1.9 (1.6-2.3) mg/dL Total Bilirubin 0.5 (0.2-1.3) mg/dL AST 21 (17-59) U/L ALT 18 (4-49) U/L Alkaline Phosphatase 73 (38-126) U/L Troponin I (0.000-0.034) ng/mL Total Protein 7.0 (6.3-8.2) g/dL Albumin 4.0 (3.5-5.0) g/dL 12/24/21 Range/Units 22:40 WBC (3.8-10.6) k/uL RBC (4.30-5.90) m/uL Hgb (13.0-17.5) gm/dL Hct (39.0-53.0) % MCV (80.0-100.0) fL MCH (25.0-35.0) pg MCHC (31.0-37.0) g/dL RDW (11.5-15.5) % Plt Count (150-450) k/uL MPV Neutrophils % % Lymphocytes % % Monocytes % % Eosinophils % % Basophils % % Neutrophils # (1.3-7.7) k/uL Lymphocytes # (1.0-4.8) k/uL Monocytes # (0-1.0) k/uL Eosinophils # (0-0.7) k/uL Basophils # (0-0.2) k/uL PT (9.0-12.0) sec INR (<1.2) APTT (22.0-30.0) sec D-Dimer (<0.60) mg/L FEU Sodium (137-145) mmol/L Potassium (3.5-5.1) mmol/L Chloride (98-107) mmol/L Carbon Dioxide (22-30) mmol/L Anion Gap mmol/L BUN (9-20) mg/dL Creatinine (0.66-1.25) mg/dL Est GFR (CKD-EPI)AfAm (>60 ml/min/1.73 sqM) Est GFR (CKD-EPI)NonAf (>60 ml/min/1.73 sqM) Glucose (74-99) mg/dL Calcium (8.4-10.2) mg/dL Magnesium (1.6-2.3) mg/dL Total Bilirubin (0.2-1.3) mg/dL AST (17-59) U/L ALT (4-49) U/L Alkaline Phosphatase (38-126) U/L Troponin I <0.012 (0.000-0.034) ng/mL Total Protein (6.3-8.2) g/dL Albumin (3.5-5.0) g/dL - EKG Data -: EKG Interpreted by Me (EKG is sinus rhythm 63 TX 186 QRS 102 QTC 389) - Radiology Data Radiology results: report reviewed (CT angios chest negative for acute disease), image reviewed Disposition Clinical Impression: Acute bronchitis, Chest pain Disposition: HOME SELF-CARE Condition: Good Instructions (If sedation given, give patient instructions): Acute Bronchitis (ED) Is patient prescribed a controlled substance at d/c from ED?: No Referrals: Augusta Shah MD [Primary Care Provider] - 1-2 days Time of Disposition: 23:40
[2021-12-24] MEDS ORDERED: IPRATROPIUM-ALBUTEROL 3 ML NEB INHALATION STA (23:00)
[2021-12-24 23:02] LABS: Basophils % (A) 0 %; Eosinophils # (A) 0.2 k/uL (0-0.7); Eosinophils % (A) 2 %; HCT 38.1 % (39.0-53.0); HGB 13.1 gm/dL (13.0-17.5); Lymphocytes # (A) 1.3 k/uL (1.0-4.8); Lymphocytes % (A) 21 %; MCH 30.9 pg (25.0-35.0); MCHC 34.3 g/dL (31.0-37.0); MCV 90.1 fL (80.0-100.0); Mean Platelet Volume 7.6; Monocytes # (A) 0.4 k/uL (0-1.0); Monocytes % (A) 7 %; Neutrophils % (A) 67 %; Platelet Count 274 k/uL (150-450); RBC 4.23 m/uL (4.30-5.90); RDW 12.9 % (11.5-15.5)
[2021-12-24 23:08] LABS: Calcium 8.8 mg/dL (8.4-10.2); Magnesium 1.9 mg/dL (1.6-2.3); Potassium 3.9 mmol/L (3.5-5.1); Total Bilirubin 0.5 mg/dL (0.2-1.3)
[2021-12-24 23:11] LABS: INR 0.9 (<1.2); Partial Thromboplastin Time 23.7 sec (22.0-30.0); Prothrombin Time 10.1 sec (9.0-12.0)
--- NOTE | 2021-12-24 23:19 | CT ---
EXAMINATION TYPE: CT angio chest DATE OF EXAM: 12/24/2021 COMPARISON: None HISTORY: chest pain and JODIE CT DLP: 484.6 mGycm Automated exposure control for dose reduction was used. CONTRAST: Performed with IV Contrast, patient injected with 75 mL of Isovue 370. Images obtained from the thoracic inlet to the diaphragm with the IV contrast. There are Three-D post processed images. There is minimal pleural thickening at the lung apices. There is some minimal reticular density in th e right middle lobe. No pleural effusion. No evidence of a pulmonary mass. Heart size is normal. No p ericardial effusion. There are no hilar masses. There is no mediastinal adenopathy. There is normal contrast opacification of the pulmonary arteries. No filling defect. The ribs appear intact. The sternum is intact. The thoracic vertebra show normal spacing and alignmen t. No compression fracture. IMPRESSION: Normal exam. No evidence of pulmonary embolism. No suspicious pulmonary density.
[2021-12-24 23:25] VITALS: PULSE 69
[2021-12-24] MEDS ORDERED: KETOROLAC 15 MG/ML 1 ML VIAL IVP STA (23:36)
[2021-12-24] MEDS ORDERED: DEXAMETHASONE SOD PHOSPHATE 10 MG/ML 1 ML VIAL IVP STA (23:36)
[2021-12-24] MEDS ORDERED: AZITHROMYCIN 500 MG TAB PO STA (23:39)
== END 2021-12-25 00:03 | disposition home or self-care (01) ==
LOC: EC 20:37
DX: J20.9 Acute bronchitis, unspecified (principal); I10 Essential (primary) hypertension
CPT/HCPCS: 36415; 94640; 93005; 85379; 83880; 80053; 83735; 84484; 85025; 85610; 85730; 71275; 99285; 96374; 96361; J2270; Q9967

== ENCOUNTER 2022-09-26 10:34 | Emergency (ER) | payer OTHER ==
[2022-09-26 10:49] VITALS: RESP 14
[2022-09-26] MEDS ORDERED: DEXAMETHASONE SOD PHOSPHATE 10 MG/ML 1 ML VIAL IM STA (11:09)
[2022-09-26] MEDS ORDERED: IPRATROPIUM-ALBUTEROL 3 ML NEB INHALATION STA (11:09)
--- NOTE | 2022-09-26 11:17 | ED ---
URI HPI - General Chief Complaint: Upper Respiratory Infection Stated Complaint: congestion, SOB Time Seen by Provider: 09/26/22 10:40 Source: patient, RN notes reviewed Mode of arrival: ambulatory Limitations: no limitations - History of Present Illness Initial Comments: This is a 51-year-old male who presents to the emergency department for coughing, congestion and minor shortness of breath. States that the symptoms started 2 days ago. Believes this to be related to bronchitis. States that he gets this every year and it feels the same. Denies any fevers or sick contacts. States that he feels like he has difficulty taking a deep breath. Denies any associated chest pain. The last time he had bronchitis he received an inhaler, which he states was very helpful. Denies any fevers, chills, sore throat, chest pain, palpitations, abdominal pain, nausea, vomiting, diarrhea, back pain, or headaches. MD Complaint: cough, nasal congestion Onset/Timin -: days(s) Associated Symptoms: shortness of breath - Related Data Home Medications Medication Instructions Recorded Confirmed lisinopriL [Prinivil] 10 mg PO DAILY 06/04/20 05/01/21 Diclofenac Sodium [Voltaren] 75 mg PO BID 05/01/21 05/01/21 Pantoprazole [Protonix] 40 mg PO DAILY 05/01/21 05/01/21 Previous Rx's Medication Instructions Recorded Albuterol Sulfate [Proair Hfa] 1 - 2 puff INHALATION Q4HR PRN 05/01/21 #8.5 gm Azithromycin [Zithromax Z-pack (6 0 mg PO DIRECTED #1 packet 05/01/21 tabs)] predniSONE 50 mg PO DAILY #5 tab 05/01/21 Sulfamethox-Tmp 800-160Mg [Bactrim 1 each PO Q12HR #14 tab 08/02/21 Ds] Albuterol Sulfate [Proair Hfa] 1 - 2 puff INHALATION Q4H PRN #8.5 12/24/21 gm Azithromycin [Zithromax Z Pack] 1 tab PO DIRECTED #6 tab 12/24/21 predniSONE 50 mg PO DAILY #5 tab 12/24/21 Albuterol Inhaler [Ventolin Hfa 1 - 2 puff INHALATION Q6H PRN #1 09/26/22 Inhaler] each predniSONE 50 mg PO DAILY 5 Days #5 tab 09/26/22 Allergies Allergy/AdvReac Type Severity Reaction Status Date / Time No Known Allergies Allergy Verified 09/26/22 10:40 Review of Systems ROS Statement: Those systems with pertinent positive or pertinent negative responses have been documented in the HPI. ROS Other: All systems not noted in ROS Statement are negative. Past Medical History Past Medical History: Hypertension Additional Past Medical History / Comment(s): arthritis History of Any Multi-Drug Resistant Organisms: None Reported Past Surgical History: No Surgical Hx Reported Additional Past Surgical History / Comment(s): neck surgery Past Psychological History: No Psychological Hx Reported Smoking Status: Never smoker Past Alcohol Use History: None Reported Past Drug Use History: None Reported General Exam Limitations: no limitations General appearance: alert, in no apparent distress Head exam: Present: atraumatic, normocephalic, normal inspection Respiratory exam: Present: normal lung sounds bilaterally. Absent: respiratory distress, wheezes, rales, rhonchi, stridor Cardiovascular Exam: Present: regular rate, normal rhythm, normal heart sounds. Absent: systolic murmur, diastolic murmur, rubs, gallop, clicks Neurological exam: Present: alert, oriented X3, CN II-XII intact Psychiatric exam: Present: normal affect, normal mood Skin exam: Present: warm, dry, intact, normal color. Absent: rash Course Vital Signs 09/26/22 09/26/22 09/26/22 10:38 10:44 10:49 Temperature 98.4 F Pulse Rate 67 Respiratory 20 14 Rate Blood Pressure 194/79 O2 Sat by Pulse 99 99 Oximetry 09/26/22 09/26/22 09/26/22 12:28 12:36 12:49 Temperature 97.9 F Pulse Rate 68 76 76 Respiratory 14 Rate Blood Pressure 186/76 O2 Sat by Pulse 99 Oximetry Medical Decision Making - Medical Decision Making This is a 51-year-old male who presents to the emergency department for coughing and congestion. Was pt. sent in by a medical professional or institution? @ -No Did you speak to anyone other than the patient for history? @ -No Did you review nursing and triage notes? @ -Yes, and I agree, it is accurate with regards to the patient's symptoms. Were old charts reviewed? @ -No Differential Diagnosis? @ -Differential Cough: Influenza, Covid, RSV, croup, allergic rhinitis, GERD, pneumonia, bronchitis, COPD, viral pharyngitis, streptococcal pharyngitis, this is not meant to be an all-inclusive list. EKG interpreted by me (3pts min.)? @ -Not obtained X-rays interpreted by me (1pt min.)? @ -Chest x-ray obtained, my interpretation identifies no localized consolidations or infiltrates. CT interpreted by me (1pt min.)? @ -Not obtained U/S interpreted by me (1pt. min.)? @ -Not obtained What testing was considered but not performed? (CT, X-rays, U/S, labs)? Why? @ -None What meds were considered but not given? Why? @ -None Did you discuss the management of the patient with other professionals? @ -No Did you reconcile home meds? @ -No Was smoking cessation discussed for >3mins.? @ -No Was critical care preformed (if so, how long)? @ -No Were there social determinants of health that impacted care today? How? (Homelessness, low income, unemployed, alcoholism, drug addiction, transportation, low edu. Level, literacy, decrease access to med. care, assisted, rehab)? @ -No Was there de-escalation of care discussed even if they declined? (Discuss DNR or withdrawal of care, Hospice)? @ -No What co-morbidities impacted this encounter? (DM, HTN, Smoking, COPD, CAD, Ca ncer, CVA, Hep., AIDS, mental health diagnosis, sleep apnea, morbid obesity)? @ -None Was patient admitted / discharged? @ -Discharged. Covid, influenza, and RSV testing were negative. Chest x-ray obtained revealing no acute findings. He was given a DuoNeb breathing treatment with significant relief in symptoms. Symptoms most likely related to a viral bronchitis. Prescription for albuterol inhaler and 5 day course of prednisone provided with dosing instructions reviewed. Otherwise advised to continue with supportive care. Undiagnosed new problem with uncertain prognosis? @ -None Drug Therapy requiring intensive monitoring for toxicity (Heparin, Nitro, Insulin, Cardizem)? @ -None Were any procedures done? @ -None Diagnosis/symptom? @ -Bronchitis Acute, or Chronic, or Acute on Chronic? @ -Acute Uncomplicated (without systemic symptoms) or Complicated (systemic symptoms)? @ -Uncomplicated Side effects of treatment? @ -None Exacerbation, Progression, or Severe Exacerbation] @ -Not applicable Poses a threat to life or bodily function? @ -No Return precautions reviewed in depth, the patient is instructed to return to the emergency department with any new, worsening, or concerning symptoms. Patient verbalized understanding. This case was discussed in detail with the attending ED physician, Dr. Saldana. Presentation, findings, and treatment plan discussed in detail as well. - Lab Data Lab Results 09/26/22 Range/Units 11:28 Influenza Type A (PCR) Not Detected (Not Detectd) Influenza Type B (PCR) Not Detected (Not Detectd) RSV (PCR) Not Detected (Not Detectd) SARS-CoV-2 (PCR) Not Detected (Not Detectd) - Radiology Data Radiology results: report reviewed, image reviewed Disposition Clinical Impression: Bronchitis Disposition: HOME SELF-CARE Instructions (If sedation given, give patient instructions): Acute Bronchitis (ED) Additional Instructions: Return to the emergency department with any new, worsening, or concerning symptoms. Take the prednisone as prescribed for 5 days. You can use the albuterol inhaler every 4-6 hours as needed for shortness of breath. Follow up with your primary care provider in 1-2 days. Prescriptions: predniSONE 50 mg PO DAILY 5 Days #5 tab Albuterol Inhaler [Ventolin Hfa Inhaler] 1 - 2 puff INHALATION Q6H PRN #1 each PRN Reason: Shortness Of Breath Is patient prescribed a controlled substance at d/c from ED?: No Referrals: None,Stated [Primary Care Provider] - 1-2 days
--- NOTE | 2022-09-26 11:51 | XR ---
EXAMINATION TYPE: XR chest 2V DATE OF EXAM: 09/26/2022 COMPARISON: 05/01/2021 HISTORY: Shortness of breath TECHNIQUE: Frontal and lateral views of the chest are obtained. FINDINGS: Scattered senescent parenchymal changes noted. Hyperinflation compatible with COPD. No evidence for infiltrate. No evidence for atelectasis. Heart size is stable. Mediastinal structures are stable and grossly unremarkable. No evidence for hilar prominence. Degenerative changes dorsal spine. IMPRESSION: 1. No evidence for acute pulmonary disease.
[2022-09-26 12:37] VITALS: PULSE 76
[2022-09-26 12:53] VITALS: BP 186/76; TEMP 97.9
== END 2022-09-26 12:53 | disposition home or self-care (01) ==
LOC: EC 10:34
DX: J20.9 Acute bronchitis, unspecified (principal); I10 Essential (primary) hypertension; Z79.899 Other long term (current) drug therapy; Z20.822 Contact with and (suspected) exposure to COVID-19
CPT/HCPCS: 94640; 87636; 71046; 99285; 96372; J1100

== ENCOUNTER 2023-02-10 21:44 | Emergency (ER) | payer OTHER ==
[2023-02-10 22:16] VITALS: BP 200/84; PULSE 78; RESP 18; TEMP 97.9
--- NOTE | 2023-02-11 13:32 | XR ---
EXAM: XR Right Humerus, 2 or More Views CLINICAL HISTORY: No injury. Pain from elbow up x 1 day TECHNIQUE: Frontal and lateral views of the right humerus. COMPARISON: None FINDINGS: Bones/joints: No displaced fracture or dislocation identified. Joint space is maintained. Probable small bone island in the right humeral head. Soft tissues: Normal. No radiopaque foreign body identified. IMPRESSION: No displaced fracture or dislocation identified.
--- NOTE | 2023-02-11 13:33 | XR ---
EXAM: XR Right Elbow Complete, 3 or More Views CLINICAL HISTORY: No injury. Pain from elbow up x 1 day TECHNIQUE: Frontal, lateral and oblique views of the right elbow. COMPARISON: None FINDINGS: Bones/joints: No displaced fracture or dislocation identified. Mild degenerative change of the right elbow. No elbow joint effusion. No bony lesion. Soft tissues: Normal. No radiopaque foreign body identified. IMPRESSION: No displaced fracture or dislocation identified.
== END 2023-02-11 03:45 | disposition home or self-care (01) ==
LOC: EC 21:44
DX: M79.602 Pain in left arm (principal)
CPT/HCPCS: 96372; 99283

== ENCOUNTER 2023-04-08 13:18 | Emergency (ER) | payer OTHER ==
--- NOTE | 2023-04-08 13:58 | ED ---
General Adult HPI <Loan Gonzalez - Last Filed: 04/08/23 13:55> <Tia Nance - Last Filed: 04/09/23 01:24> - General Stated complaint: martinez Time Seen by Provider: 04/08/23 13:57 - History of Present Illness Initial comments: The patient is a 52-year-old gentleman with a history of bronchitis who presents emergency room with complaints of shortness of breath, sore throat and tightness in his chest that started last night. he is a nonsmoker. (Loan Gonzalez) 52-year-old male presenting with chief complaint of difficulty breathing. Patient states that he has had an increasing cough and shortness of breath since last night. He also admits to sore throat and tightness in the chest. He is a previous smoker. No fevers or chills. No nausea or vomiting. No difficulty swallowing. He states "I think I have bronchitis". (Tia Nance) - Related Data Home Medications Medication Instructions Recorded Confirmed lisinopriL [Prinivil] 10 mg PO DAILY 06/04/20 05/01/21 Diclofenac Sodium [Voltaren] 75 mg PO BID 05/01/21 05/01/21 Pantoprazole [Protonix] 40 mg PO DAILY 05/01/21 05/01/21 Previous Rx's Medication Instructions Recorded Albuterol Sulfate [Proair Hfa] 1 - 2 puff INHALATION Q4HR PRN 05/01/21 #8.5 gm Azithromycin [Zithromax Z-pack (6 0 mg PO DIRECTED #1 packet 05/01/21 tabs)] predniSONE 50 mg PO DAILY #5 tab 05/01/21 Sulfamethox-Tmp 800-160Mg [Bactrim 1 each PO Q12HR #14 tab 08/02/21 Ds] Albuterol Sulfate [Proair Hfa] 1 - 2 puff INHALATION Q4H PRN #8.5 12/24/21 gm Azithromycin [Zithromax Z Pack] 1 tab PO DIRECTED #6 tab 12/24/21 predniSONE 50 mg PO DAILY #5 tab 12/24/21 Albuterol Inhaler [Ventolin Hfa 1 - 2 puff INHALATION Q6H PRN #1 09/26/22 Inhaler] each predniSONE 50 mg PO DAILY 5 Days #5 tab 09/26/22 Azithromycin [Zithromax Z Pack] 1 tab PO DIRECTED #6 tab 04/08/23 methylPREDNISolone Dose Pack 4 mg PO DIRECTED #1 packet 04/08/23 [Medrol Dose Pack] Allergies Allergy/AdvReac Type Severity Reaction Status Date / Time No Known Allergies Allergy Verified 04/08/23 13:56 Review of Systems ROS Other: All systems not noted in ROS Statement are negative. <Loan Gonzalez - Last Filed: 04/08/23 13:55> ROS Other: All systems not noted in ROS Statement are negative. <Tia Nance - Last Filed: 04/09/23 01:24> ROS Statement: Those systems with pertinent positive or pertinent negative responses have been documented in the HPI. Past Medical History Past Medical History: Hypertension Additional Past Medical History / Comment(s): arthritis History of Any Multi-Drug Resistant Organisms: None Reported Past Surgical History: No Surgical Hx Reported Additional Past Surgical History / Comment(s): neck surgery Past Psychological History: No Psychological Hx Reported Smoking Status: Never smoker Past Alcohol Use History: None Reported Past Drug Use History: None Reported <Loan Gonzalez - Last Filed: 04/08/23 13:55> General Exam <Loan Gonzalez - Last Filed: 04/08/23 13:55> Limitations: no limitations General appearance: alert, in no apparent distress Head exam: Present: atraumatic, normocephalic, normal inspection Eye exam: Present: normal appearance Neck exam: Present: normal inspection, full ROM Respiratory exam: Present: normal lung sounds bilaterally. Absent: respiratory distress, wheezes, rales, rhonchi, stridor Cardiovascular Exam: Present: regular rate, normal rhythm, normal heart sounds. Absent: systolic murmur, diastolic murmur, rubs, gallop, clicks Neurological exam: Present: alert, oriented X3 Psychiatric exam: Present: normal affect, normal mood Skin exam: Present: warm, dry <Tia Nance - Last Filed: 04/09/23 01:24> - General Exam Comments Initial Comments: Visual Physical Exam Vital signs reviewed General: Well-appearing, nontoxic, no acute distress. Head: Normocephalic, atraumatic Eyes: PERRLA, EOMI ENT: Airway patent Chest: Nonlabored breathing Skin: No visual rash, normal skin tone Neuro: Alert and oriented 3 Musculoskeletal: No gross abnormalities (Loan Gonzalez) Course Vital Signs 04/08/23 04/08/23 13:52 19:32 Temperature 98.5 F 98.9 F Pulse Rate 83 79 Respiratory 18 18 Rate Blood Pressure 134/75 150/92 O2 Sat by Pulse 98 97 Oximetry Medical Decision Making <Loan Gonzalez - Last Filed: 04/08/23 13:55> - Lab Data Result diagrams: 04/08/23 14:09 04/08/23 14:09 <Tia Nance - Last Filed: 04/09/23 01:24> - Medical Decision Making Quick note portion completed by myself, electronically signed SELENA Painter. (Loan Gonzalez) Was pt. sent in by a medical professional or institution (, PA, ANTHROPOMETRIST, urgent care, hospital, or alf...) When possible be specific @ -No Did you speak to anyone other than the patient for history (EMS, parent, family, police, friend...)? What history was obtained from this source @ -No Did you review nursing and triage notes (agree or disagree)? Why? @ -I reviewed and agree with nursing and triage notes Were old charts reviewed (outside hosp., previous admission, EMS record, old EKG, old radiological studies, urgent care reports/EKG's, alf records)? Report findings @ -No old charts were reviewed Differential Diagnosis (chest pain, altered mental status, abdominal pain women, abdominal pain men, vaginal bleeding, weakness, fever, dyspnea, syncope, headache, dizziness, GI bleed, back pain, seizure, CVA, palpatations, mental health, musculoskeletal)? @ -MDM Differential Dyspnea: Coronary syndrome, arrhythmia, tamponade, asthma, COPD, pulmonary embolism, pneumonia, pneumothorax, pulmonary effusion, anaphylaxis, diabetic ketoacidosis, flailed chest, pulmonary contusion, diaphragmatic rupture, anemia, neuromuscular this is not meant to be an all-inclusive list. EKG interpreted by me (3pts min.). @ -Sinus rhythm ventricular rate 79. [place] interval 162. QRS 101. QT 345. QTc 380. X-rays interpreted by me (1pt min.). @ -Chest x-ray shows no acute cardiopulmonary process, however, and rotation there is a questionable right lower lobe pneumonia CT interpreted by me (1pt min.). @ -None done U/S interpreted by me (1pt. min.). @ -None done What testing was considered but not performed or refused? (CT, X-rays, U/S, labs)? Why? @ -None What meds were considered but not given or refused? Why? @ -None Did you discuss the management of the patient with other professionals (professionals i.e. , PA, ANTHROPOMETRIST, lab, RT, psych nurse, criminal justice social worker, outside sales account manager, teacher, infantry officer, case liner)? Give summary @ -No Was smoking cessation discussed for >3mins.? @ -No Was critical care preformed (if so, how long)? @ -No Were there social determinants of health that impacted care today? How? (Homelessness, low income, unemployed, alcoholism, drug addiction, transportation, low edu. Level, literacy, decrease access to med. care, care home, rehab)? @ -No Was there de-escalation of care discussed even if they declined (Discuss DNR or withdrawal of care, Hospice)? DNR status @ -No What co-morbidities impacted this encounter? (DM, HTN, Smoking, COPD, CAD, Cancer, CVA, ARF, Chemo, Hep., AIDS, mental health diagnosis, sleep apnea, morbid obesity)? @ -None Was patient admitted / discharged? Hospital course, mention meds given and route, prescriptions, significant lab abnormalities, going to OR and other pertinent info. @ -52-year-old male presenting with chief complaint of cough and difficulty breathing. Heart and lungs are clear on auscultation. No leukocytosis or anemia. Negative troponin. Patient is negative for influenza, RSV, Covid, group A strep. Chest x-ray reports no acute cardiopulmonary process, by my interpretation there is a questionable right lower lobe pneumonia. Patient will be treated with azithromycin and Medrol Dosepak. He is educated on today's findings and treatment plan. Follow-up with PCP. Report back to ER with any new or worsening symptoms. Discussed return parameters and answered all questions. Patient conveyed verbal understanding and agreed to the plan. I discussed this case in detail with my attending Dr. Finnegan Undiagnosed new problem with uncertain prognosis? @ -No Drug Therapy requiring intensive monitoring for toxicity (Heparin, Nitro, Insulin, Cardizem)? @ -No Were any procedures done? @ -No Diagnosis/symptom? @ -Bronchitis Acute, or Chronic, or Acute on Chronic? @ -Acute Uncomplicated (without systemic symptoms) or Complicated (systemic symptoms)? @ -uncomplicated Side effects of treatment? @ -No Exacerbation, Progression, or Severe Exacerbation? @ -No Poses a threat to life or bodily function? How? (Chest pain, [place], [place], pneumonia, PE, COPD, DKA, ARF, appy, cholecystitis, CVA, Diverticulitis, Homicidal, Suicidal, threat to staff... and all critical care pts) @ -No (Tia Nance) - Lab Data Lab Results 04/08/23 04/08/23 04/08/23 Range/Units 14:06 14:06 14:09 WBC 5.6 (3.8-10.6) k/uL RBC 4.54 (4.30-5.90) m/uL Hgb 14.5 (13.0-17.5) gm/dL Hct 40.6 (39.0-53.0) % MCV 89.6 (80.0-100.0) fL MCH 31.9 (25.0-35.0) pg MCHC 35.6 (31.0-37.0) g/dL RDW 12.8 (11.5-15.5) % Plt Count 256 (150-450) k/uL MPV 7.8 Neutrophils % (Manual) 72 % Lymphocytes % (Manual) 16 % Monocytes % (Manual) 6 % Eosinophils % (Manual) 6 % Neutrophils # (Manual) 4.03 (1.3-7.7) k/uL Lymphocytes # (Manual) 0.90 L (1.0-4.8) k/uL Monocytes # (Manual) 0.34 (0-1.0) k/uL Eosinophils # (Manual) 0.34 (0-0.7) k/uL Nucleated RBCs 0 (0-0) /100 WBC Manual Slide Review Performed Sodium (137-145) mmol/L Potassium (3.5-5.1) mmol/L Chloride (98-107) mmol/L Carbon Dioxide (22-30) mmol/L Anion Gap mmol/L BUN (9-20) mg/dL Creatinine (0.66-1.25) mg/dL Est GFR (CKD-EPI)AfAm (>60 ml/min/1.73 sqM) Est GFR (CKD-EPI)NonAf (>60 ml/min/1.73 sqM) Glucose (74-99) mg/dL Calcium (8.4-10.2) mg/dL Total Bilirubin (0.2-1.3) mg/dL AST (17-59) U/L ALT (4-49) U/L Alkaline Phosphatase (38-126) U/L Troponin I (0.000-0.034) ng/mL Total Protein (6.3-8.2) g/dL Albumin (3.5-5.0) g/dL Influenza Type A (PCR) Not Detected (Not Detectd) Influenza Type B (PCR) Not Detected (Not Detectd) RSV (PCR) Not Detected (Not Detectd) SARS-CoV-2 (PCR) Not Detected (Not Detectd) Group A Strep (PCR) NOT DETECTED (Not Detectd) 04/08/23 04/08/23 Range/Units 14:09 14:09 WBC (3.8-10.6) k/uL RBC (4.30-5.90) m/uL Hgb (13.0-17.5) gm/dL Hct (39.0-53.0) % MCV (80.0-100.0) fL MCH (25.0-35.0) pg MCHC (31.0-37.0) g/dL RDW (11.5-15.5) % Plt Count (150-450) k/uL MPV Neutrophils % (Manual) % Lymphocytes % (Manual) % Monocytes % (Manual) % Eosinophils % (Manual) % Neutrophils # (Manual) (1.3-7.7) k/uL Lymphocytes # (Manual) (1.0-4.8) k/uL Monocytes # (Manual) (0-1.0) k/uL Eosinophils # (Manual) (0-0.7) k/uL Nucleated RBCs (0-0) /100 WBC Manual Slide Review Sodium 136 L (137-145) mmol/L Potassium 3.9 (3.5-5.1) mmol/L Chloride 99 (98-107) mmol/L Carbon Dioxide 24 (22-30) mmol/L Anion Gap 13 mmol/L BUN 12 (9-20) mg/dL Creatinine 1.08 (0.66-1.25) mg/dL Est GFR (CKD-EPI)AfAm >90 (>60 ml/min/1.73 sqM) Est GFR (CKD-EPI)NonAf 78 (>60 ml/min/1.73 sqM) Glucose 249 H (74-99) mg/dL Calcium 9.0 (8.4-10.2) mg/dL Total Bilirubin 1.1 (0.2-1.3) mg/dL AST 21 (17-59) U/L ALT 25 (4-49) U/L Alkaline Phosphatase 79 (38-126) U/L Troponin I <0.012 (0.000-0.034) ng/mL Total Protein 7.3 (6.3-8.2) g/dL Albumin 3.9 (3.5-5.0) g/dL Influenza Type A (PCR) (Not Detectd) Influenza Type B (PCR) (Not Detectd) RSV (PCR) (Not Detectd) SARS-CoV-2 (PCR) (Not Detectd) Group A Strep (PCR) (Not Detectd) Disposition <Loan Gonzalez - Last Filed: 04/08/23 13:55> Is patient prescribed a controlled substance at d/c from ED?: No Time of Disposition: 18:36 <Tia Nance - Last Filed: 04/09/23 01:24> Clinical Impression: Bronchitis Disposition: HOME SELF-CARE Condition: Good Instructions (If sedation given, give patient instructions): Acute Bronchitis (ED) Additional Instructions: Follow-up with PCP. Report back to ER with any new or worsening symptoms. Prescriptions: methylPREDNISolone Dose Pack [Medrol Dose Pack] 4 mg PO DIRECTED #1 packet Azithromycin [Zithromax Z Pack] 1 tab PO DIRECTED #6 tab Referrals: None,Stated [Primary Care Provider] - 1-2 days Cristopher Dean MD [STAFF PHYSICIAN] - 1-2 days Pancho Fink MD [STAFF PHYSICIAN] - 1-2 days
[2023-04-08 14:18] VITALS: RESP 18
[2023-04-08 14:26] LABS: HCT 40.6 % (39.0-53.0); HGB 14.5 gm/dL (13.0-17.5); MCH 31.9 pg (25.0-35.0); MCHC 35.6 g/dL (31.0-37.0); MCV 89.6 fL (80.0-100.0); Mean Platelet Volume 7.8; Platelet Count 256 k/uL (150-450); RBC 4.54 m/uL (4.30-5.90); RDW 12.8 % (11.5-15.5); WBC 5.6 k/uL (3.8-10.6)
[2023-04-08 14:51] LABS: ALT 25 U/L (4-49); AST 21 U/L (17-59); African American GFR (CKD) >90 (>60 ml/min/1.73 sqM); Albumin 3.9 g/dL (3.5-5.0); Alkaline Phosphatase 79 U/L (38-126); Anion Gap 13 mmol/L; Blood Urea Nitrogen 12 mg/dL (9-20); Carbon Dioxide 24 mmol/L (22-30); Chloride 99 mmol/L (98-107); Glucose 249 mg/dL (74-99); Non-African American GFR(CKD) 78 (>60 ml/min/1.73 sqM); Potassium 3.9 mmol/L (3.5-5.1); Sodium 136 mmol/L (137-145); Total Bilirubin 1.1 mg/dL (0.2-1.3); Total Protein 7.3 g/dL (6.3-8.2)
[2023-04-08 14:57] LABS: Eosinophils # (M) 0.34 k/uL (0-0.7); Monocytes # (M) 0.34 k/uL (0-1.0); Neutrophils # (M) 4.03 k/uL (1.3-7.7); Neutrophils % (M) 72 %; Nucleated Red Blood Cells 0 /100 WBC (0-0); Total Cells Counted 100
--- NOTE | 2023-04-08 15:22 | XR ---
EXAMINATION TYPE: XR chest 2V DATE OF EXAM: 04/08/2023 COMPARISON: 09/26/2022 TECHNIQUE: PA and lateral views submitted. HISTORY: Bronchitis FINDINGS: The lungs are clear and there is no pneumothorax, pleural effusion, or focal pneumonia. Heart size normal and no overt failure. Osseous structures demonstrate hypertrophic and degenerative changes of the spine. Postsurgical change overlying the cervical spine. There is emphysematous changes. Biapical pleural thickening. IMPRESSION: 1. No acute process.
[2023-04-08] MEDS ORDERED: cefTRIAXone 1,000 MG VIAL (IM USE) IM STA (18:37)
[2023-04-08 19:51] VITALS: BP 150/92; PULSE 79; TEMP 98.9
== END 2023-04-08 19:34 | disposition home or self-care (01) ==
LOC: EC 13:18
DX: J40 Bronchitis, not specified as acute or chronic (principal); I10 Essential (primary) hypertension; Z79.899 Other long term (current) drug therapy; Z20.822 Contact with and (suspected) exposure to COVID-19
CPT/HCPCS: 36415; 71046; 80053; 84484; 85025; 87636; 87651; 93005; 99285

== ENCOUNTER 2024-09-20 17:00 | Emergency (ER) | payer OTHER ==
--- NOTE | 2024-09-20 17:56 | ED ---
Extremity Problem HPI - General Chief complaint: Extremity Problem,Nontraumatic Stated complaint: L Knee Swollen Time Seen by Provider: 09/20/24 17:18 Source: patient, RN notes reviewed Mode of arrival: ambulatory Limitations: no limitations - History of Present Illness Initial comments: This is a 53-year-old male with history of hypertension and arthritis presenting for left knee pain (01/03) occurring last night. Patient states pain began as he was going up/down the stairs repeatedly. Patient states he is unsure if he twisted his knee. Denies falling or direct trauma to the knee. States pain wraps around knee and is felt posteriorly. Patient states he is unable to straighten the knee or fully flex due to pain. Patient states he is otherwise able to ambulate/bear weight. Denies [id number] medication use. MD Complaint: joint pain Onset/Timin -: days(s) Location: left, knee History of Same: No Severity scale (1-10): 9 Consistency: constant Improves with: immobilization Worsens with: weight bearing, walking, exertion, palpation Associated Symptoms: denies other symptoms - Related Data Home Medications Medication Instructions Recorded Confirmed lisinopriL [Prinivil] 10 mg PO DAILY 06/04/20 05/01/21 Diclofenac Sodium [Voltaren] 75 mg PO BID 05/01/21 05/01/21 Pantoprazole [Protonix] 40 mg PO DAILY 05/01/21 05/01/21 Previous Rx's Medication Instructions Recorded Albuterol Sulfate [Proair Hfa] 1 - 2 puff INHALATION Q4HR PRN 05/01/21 #8.5 gm Azithromycin [Zithromax Z-pack (6 0 mg PO DIRECTED #1 packet 05/01/21 tabs)] predniSONE 50 mg PO DAILY #5 tab 05/01/21 Sulfamethox-Tmp 800-160Mg [Bactrim 1 each PO Q12HR #14 tab 08/02/21 Ds] Albuterol Sulfate [Proair Hfa] 1 - 2 puff INHALATION Q4H PRN #8.5 12/24/21 gm Azithromycin [Zithromax Z Pack] 1 tab PO DIRECTED #6 tab 12/24/21 predniSONE 50 mg PO DAILY #5 tab 12/24/21 Albuterol Inhaler [Ventolin Hfa 1 - 2 puff INHALATION Q6H PRN #1 06/03/23 Inhaler] each predniSONE 50 mg PO DAILY 5 Days #5 tab 09/26/22 Azithromycin [Zithromax Z Pack] 1 tab PO DIRECTED #6 tab 04/08/23 methylPREDNISolone Dose Pack 4 mg PO DIRECTED #1 packet 04/08/23 [Medrol Dose Pack] Ibuprofen [Motrin] 800 mg PO Q8HR PRN #30 tab 09/20/24 Allergies Allergy/AdvReac Type Severity Reaction Status Date / Time No Known Allergies Allergy Verified 04/08/23 13:56 Review of Systems ROS Statement: Those systems with pertinent positive or pertinent negative responses have been documented in the HPI. ROS Other: All systems not noted in ROS Statement are negative. Past Medical History Past Medical History: Hypertension Additional Past Medical History / Comment(s): arthritis History of Any Multi-Drug Resistant Organisms: None Reported Past Surgical History: No Surgical Hx Reported, Orthopedic Surgery Additional Past Surgical History / Comment(s): neck surgery, right knee surgery Past Psychological History: No Psychological Hx Reported Smoking Status: Never smoker Past Alcohol Use History: None Reported Past Drug Use History: None Reported General Exam Limitations: no limitations General appearance: alert, in no apparent distress Head exam: Present: atraumatic, normocephalic, normal inspection Eye exam: Present: normal appearance, PERRL, EOMI. Absent: scleral icterus, conjunctival injection, periorbital swelling ENT exam: Present: normal exam, mucous membranes moist Neck exam: Present: normal inspection. Absent: tenderness, meningismus, lymphadenopathy Respiratory exam: Present: normal lung sounds bilaterally. Absent: respiratory distress, wheezes, rales, rhonchi, stridor Cardiovascular Exam: Present: regular rate, normal rhythm, normal heart sounds. Absent: systolic murmur, diastolic murmur, rubs, gallop, clicks GI/Abdominal exam: Present: soft, normal bowel sounds. Absent: distended, tenderness, guarding, rebound, rigid Extremities exam: Present: tenderness (Left parapatellar tenderness, especially at tibial plateau.), normal capillary refill, joint swelling (Positive mild left knee edema without erythema, ecchymosis, warmth, open wound), other (LLE distal neurovascular and motor function intact. Posterior tibialis pulse +2. Positive Taj's test. Negative Agnes's, varus/valgus.). Absent: full ROM (Patient unable to fully extend or flex knee due to pain. Normal passive range of motion without pain), pedal edema, calf tenderness Back exam: Present: normal inspection Neurological exam: Present: alert, oriented X3, CN II-XII intact Psychiatric exam: Present: normal affect, normal mood Skin exam: Present: warm, dry, intact, normal color. Absent: rash Course Vital Signs 09/20/24 09/20/24 17:16 19:05 Temperature 98.4 F 98.3 F Pulse Rate 91 72 Respiratory 18 16 Rate Blood Pressure 178/103 178/97 O2 Sat by Pulse 98 99 Oximetry Medical Decision Making - Medical Decision Making Was pt. sent in by a medical professional or institution (, PA, AEROSPACE PHYSIOLOGICAL TECHNICIAN, urgent care, hospital, or custodial...) When possible be specific @ -No Did you speak to anyone other than the patient for history (EMS, parent, family, police, friend...)? What history was obtained from this source @ -No Did you review nursing and triage notes (agree or disagree)? Why? @ -I reviewed and agree with nursing and triage notes Were old charts reviewed (outside hosp., previous admission, EMS record, old EKG, old radiological studies, urgent care reports/EKG's, custodial records)? Report findings @ -No old charts were reviewed Differential Diagnosis (chest pain, altered mental status, abdominal pain women, abdominal pain men, vaginal bleeding, weakness, fever, dyspnea, syncope, headache, dizziness, GI bleed, back pain, seizure, CVA, palpatations, mental health, musculoskeletal)? @ -Differential Musculoskeletal Muscular strain, contusion, ligament sprain, fracture, arthritis, septic arthritis, bursitis, cellulitis, muscle spasm, nerve compression, DVT, arterial occlusion, herpes zoster, electrolyte abnormality, tumor.... This is not meant to be in all inclusive list EKG interpreted by me (3pts min.). @ -Not done X-rays interpreted by me (1pt min.). @ -Left knee x-ray shows no acute fracture or dislocation. CT interpreted by me (1pt min.). @ -None done U/S interpreted by me (1pt. min.). @ -None done What testing was considered but not performed or refused? (CT, X-rays, U/S, labs)? Why? @ -None What meds were considered but not given or refused? Why? @ -None Did you discuss the management of the patient with other professionals (professionals i.e. , PA, AEROSPACE PHYSIOLOGICAL TECHNICIAN, lab, RT, psych nurse, pediatric social worker, fish warden, teacher, air defense artillery officer, caser shoe parts)? Give summary @ -No Was smoking cessation discussed for >3mins.? @ -No Was critical care preformed (if so, how long)? @ -No Were there social determinants of health that impacted care today? How? (Homelessness, low income, unemployed, alcoholism, drug addiction, transportation, low edu. Level, literacy, decrease access to med. care, penitentiary, rehab)? @ -No Was there de-escalation of care discussed even if they declined (Discuss DNR or withdrawal of care, Hospice)? DNR status @ -No What co-morbidities impacted this encounter? (DM, HTN, Smoking, COPD, CAD, Cancer, CVA, ARF, Chemo, Hep., AIDS, mental health diagnosis, sleep apnea, morbid obesity)? @ -None Was patient admitted / discharged? Hospital course, mention meds given and route, prescriptions, significant lab abnormalities, going to OR and other pertinent info. @ -Left knee x-ray shows no acute fracture or dislocation. Patient provided IM Toradol and p.o. Tylenol for pain. Wyatt wrap also applied along with cold compress. Motrin 800 sent to patient's pharmacy. Advised alternate Tylenol/Motrin every 4 hours for pain along with RICE. Advised follow-up with PCP/orthopedics for any ongoing or worsening pain. Discussed patient with Dr. Finnegan. Undiagnosed new problem with uncertain prognosis? @ -No Drug Therapy requiring intensive monitoring for toxicity (Heparin, Nitro, Insulin, Cardizem)? @ -No Were any procedures done? @ -No Diagnosis/symptom? @ -Knee pain Acute, or Chronic, or Acute on Chronic? @ -Acute Uncomplicated (without systemic symptoms) or Complicated (systemic symptoms)? @ -Uncomplicated Side effects of treatment? @ -No Exacerbation, Progression, or Severe Exacerbation? @ -No Poses a threat to life or bodily function? How? (Chest pain, [place], [place], pneumonia, PE, COPD, DKA, ARF, appy, cholecystitis, CVA, Diverticulitis, Homicidal, Suicidal, threat to staff... and all critical care pts) @ -No Disposition Clinical Impression: Left knee pain Disposition: HOME SELF-CARE Condition: Fair Instructions (If sedation given, give patient instructions): Knee Pain (ED) Additional Instructions: Alternate Tylenol/Motrin every 4 hours for pain. Rest, ice, compression, elevation. Follow-up with PCP/orthopedics for any ongoing or worsening pain/symptoms. Prescriptions: Ibuprofen [Motrin] 800 mg PO Q8HR PRN #30 tab PRN Reason: Pain Is patient prescribed a controlled substance at d/c from ED?: No Referrals: None,Stated [Primary Care Provider] - 1-2 days [facility] [Provider Group] - 1-2 days [facility] [Provider Group] - 1-2 days Time of Disposition: 18:42
[2024-09-20] MEDS: ACETAMINOPHEN TAB 500 MG TAB PO STA (18:12)
[2024-09-20] MEDS: KETOROLAC 15 MG/ML 1 ML VIAL IM STA (18:13)
--- NOTE | 2024-09-20 18:25 | XR ---
EXAMINATION TYPE: XR knee complete LT DATE OF EXAM: 09/20/2024 6:11 PM COMPARISON: None. CLINICAL INDICATION: Male, 53 years old with history of Knee pain while walking, no trauma, pain TECHNIQUE: 3 view(s) obtained. FINDINGS: No joint effusion is evident. No acute fracture or dislocation evident joint spaces are preserved. Follow up exams can be performed 7-10 days from acute trauma for continued pain. MRI can be performed for evaluation of soft tissue the benefit IMPRESSION: 1. No acute osseous abnormality left knee [facility], , 09/20/2024 6:23 PM
[2024-09-20 19:07] VITALS: BP 178/97; PULSE 72; RESP 16; TEMP 98.3
== END 2024-09-20 19:08 | disposition home or self-care (01) ==
LOC: EC 17:00
DX: M25.562 Pain in left knee (principal); X50.0XXA Overexertion from strenuous movement or load, initial encounter
CPT/HCPCS: 73562; 99283; 96372; J1885

== ENCOUNTER 2024-11-17 22:07 | Emergency (ER) | payer OTHER ==
[2024-11-17 22:16] VITALS: TEMP 98.2
[2024-11-17] MEDS: SODIUM CHLORIDE 0.9% 1,000 ML IV STA (22:50)
[2024-11-17 23:32] LABS: Basophils # (A) 0.04 10*3/uL (0.00-0.10); Basophils % (A) 0.7 %; Eosinophils # (A) 0.18 10*3/uL (0.04-0.35); Eosinophils % (A) 3.3 %; HCT 41.2 % (39.6-50.0); HGB 15.2 g/dL (13.0-17.0); Lymphocytes # (A) 1.63 10*3/uL (0.90-5.00); Lymphocytes % (A) 29.7 %; MCH 32.3 pg (27.0-32.0); MCHC 36.9 g/dL (32.0-37.0); MCV 87.7 fL (80.0-97.0); Monocytes # (A) 0.48 10*3/uL (0.20-1.00); Monocytes % (A) 8.8 %; Neutrophils # (A) 3.13 10*3/uL (1.80-7.70); Neutrophils % (A) 57.1 %; Platelet Count 232 10*3/uL (140-440); RBC 4.70 10*6/uL (4.40-5.60); RDW 12.9 % (11.5-14.5); WBC 5.48 10*3/uL (4.50-10.00)
--- NOTE | 2024-11-17 23:33 | CT ---
EXAMINATION TYPE: CT abdomen pelvis w con DATE OF EXAM: 11/17/2024 COMPARISON: CT abdomen and pelvis February 05, 2021 CLINICAL INDICATION: Male, 53 years old with history of Abdominal pain, abd pain, TECHNIQUE: CT scan of the abdomen and pelvis is performed with IV Contrast, patient injected with 100 mL of Isov ue 300., (none if empty) Oral contrast used: without Oral Contrast (none if empty) CT DLP: 1394.1 mGycm, Automated exposure control for dose reduction was used. FINDINGS: LUNG BASES: No significant abnormality is appreciated. LIVER/GB: Liver is heterogeneously hypodense consistent with diffuse fatty infiltrative hepatocellula r disease. PANCREAS: No significant abnormality is seen. SPLEEN: No significant abnormality is seen. ADRENALS: No significant abnormality is seen. KIDNEYS: Incidental 1.1 cm simple appearing thin-walled cyst left kidney axial image 33 does not requ beth follow-up. Retroaortic left renal vein which is a normal variant. BOWEL: No significant abnormality is seen. PROSTATE/SEMINAL VESICLES: No gross abnormality seen. LYMPH NODES: No greater than 1cm abdominal or pelvic lymph nodes are appreciated. OSSEOUS STRUCTURES: No significant abnormality is seen. OTHER: No significant additional abnormality is seen. IMPRESSION: No significant new/acute finding is seen to account for patient's clinical symptoms. [facility], , 11/17/2024 11:30 PM
[2024-11-17 23:50] LABS: ALT 31 U/L (4-49); AST 22 U/L (17-59); African American GFR (CKD) 83 (>60 ml/min/1.73 sqM); Albumin 3.9 g/dL (3.5-5.0); Alkaline Phosphatase 90 U/L (38-126); Anion Gap 11 mmol/L; Blood Urea Nitrogen 11 mg/dL (9-20); Calcium 8.6 mg/dL (8.4-10.2); Carbon Dioxide 20 mmol/L (22-30); Chloride 102 mmol/L (98-107); Glucose 273 mg/dL (74-99); Lipase 68 U/L (23-300); Magnesium 1.7 mg/dL (1.6-2.3); Non-African American GFR(CKD) 72 (>60 ml/min/1.73 sqM); Potassium 3.6 mmol/L (3.5-5.1); Sodium 133 mmol/L (137-145); Total Protein 6.5 g/dL (6.3-8.2)
[2024-11-17 23:55] LABS: INR 1.0 (<1.2); Partial Thromboplastin Time 21.9 sec (22.0-30.0); Prothrombin Time 10.9 sec (10.0-12.5)
--- NOTE | 2024-11-18 00:18 | ED ---
General Adult HPI - General Chief complaint: GI Bleed Stated complaint: Blood in Stool Time Seen by Provider: 11/17/24 22:17 Source: patient Mode of arrival: ambulatory - History of Present Illness Initial comments: 53-year-old male presenting with chief complaint of blood in the stool. Patient reports that this occurred just this evening. States that for about 2 months he has been having abdominal pain which goes up to the sides of his abdomen. No rectal pain. No nausea or vomiting. Admits to some diarrhea. No fever. No urinary symptoms. No chest pain or difficulty breathing. No black tar-like stool. No blood thinners. Denies any injury or trauma. - Related Data Home Medications Medication Instructions Recorded Confirmed lisinopriL [Prinivil] 10 mg PO DAILY 06/04/20 05/01/21 Diclofenac Sodium [Voltaren] 75 mg PO BID 05/01/21 05/01/21 Pantoprazole [Protonix] 40 mg PO DAILY 05/01/21 05/01/21 Previous Rx's Medication Instructions Recorded Albuterol Sulfate [Proair Hfa] 1 - 2 puff INHALATION Q4HR PRN 05/01/21 #8.5 gm Azithromycin [Zithromax Z-pack (6 0 mg PO DIRECTED #1 packet 05/01/21 tabs)] predniSONE 50 mg PO DAILY #5 tab 05/01/21 Sulfamethox-Tmp 800-160Mg [Bactrim 1 each PO Q12HR #14 tab 08/02/21 Ds] Albuterol Sulfate [Proair Hfa] 1 - 2 puff INHALATION Q4H PRN #8.5 12/24/21 gm Azithromycin [Zithromax Z Pack] 1 tab PO DIRECTED #6 tab 12/24/21 predniSONE 50 mg PO DAILY #5 tab 12/24/21 Albuterol Inhaler [Ventolin Hfa 1 - 2 puff INHALATION Q6H PRN #1 09/26/22 Inhaler] each predniSONE 50 mg PO DAILY 5 Days #5 tab 09/26/22 Azithromycin [Zithromax Z Pack] 1 tab PO DIRECTED #6 tab 04/08/23 methylPREDNISolone Dose Pack 4 mg PO DIRECTED #1 packet 04/08/23 [Medrol Dose Pack] Ibuprofen [Motrin] 800 mg PO Q8HR PRN #30 tab 09/20/24 Allergies Allergy/AdvReac Type Severity Reaction Status Date / Time No Known Allergies Allergy Verified 11/17/24 22:16 Review of Systems ROS Statement: Those systems with pertinent positive or pertinent negative responses have been documented in the HPI. ROS Other: All systems not noted in ROS Statement are negative. Past Medical History Past Medical History: Hypertension Additional Past Medical History / Comment(s): arthritis History of Any Multi-Drug Resistant Organisms: None Reported Past Surgical History: No Surgical Hx Reported, Orthopedic Surgery Additional Past Surgical History / Comment(s): neck surgery, right knee surgery Past Psychological History: No Psychological Hx Reported Smoking Status: Never smoker Past Alcohol Use History: None Reported Past Drug Use History: None Reported General Exam Limitations: no limitations General appearance: alert, in no apparent distress Head exam: Present: atraumatic, normocephalic, normal inspection Eye exam: Present: normal appearance, EOMI Neck exam: Present: normal inspection. Absent: meningismus Respiratory exam: Present: normal lung sounds bilaterally. Absent: respiratory distress, wheezes, rales, rhonchi, stridor Cardiovascular Exam: Present: regular rate, normal rhythm, normal heart sounds. Absent: systolic murmur, diastolic murmur, rubs, gallop, clicks GI/Abdominal exam: Present: soft, tenderness (diffuse). Absent: distended, guarding, rebound, rigid Rectal exam: Present: normal inspection, normal rectal tone, heme (-) stool. Absent: hemorrhoids, mass, tenderness Neurological exam: Present: alert, oriented X3 Psychiatric exam: Present: normal affect, normal mood Skin exam: Present: warm, dry, normal color Course Vital Signs 11/17/24 11/17/24 22:10 23:01 Temperature 98.2 F Pulse Rate 70 68 Respiratory 18 16 Rate Blood Pressure 203/81 193/88 O2 Sat by Pulse 99 100 Oximetry Medical Decision Making - Medical Decision Making Was pt. sent in by a medical professional or institution (, PA, [employer] ATTENDANT, urgent care, hospital, or longterm...) When possible be specific @ -No Did you speak to anyone other than the patient for history (EMS, parent, family, police, friend...)? What history was obtained from this source @ -No Did you review nursing and triage notes (agree or disagree)? Why? @ -I reviewed and agree with nursing and triage notes Were old charts reviewed (outside hosp., previous admission, EMS record, old EK G, old radiological studies, urgent care reports/EKG's, longterm records)? Report findings @ -No old charts were reviewed Differential Diagnosis (chest pain, altered mental status, abdominal pain women, abdominal pain men, vaginal bleeding, weakness, fever, dyspnea, syncope, headache, dizziness, GI bleed, back pain, seizure, CVA, palpatations, mental health, musculoskeletal)? @ -MDM Differential GI Bleed: Esophageal varices, aortoenteric fistula, Marilyn-Yanes, gastritis, peptic ulcer disease, diverticulosis, inflammatory bowel disease, hemorrhoids, fissure, colitis, malignancy, Meckel’s diverticulum… this is not meant to be an all- inclusive list. EKG interpreted by me (3pts min.). @ -As above X-rays interpreted by me (1pt min.). @ -None done CT interpreted by me (1pt min.). @ -No acute process seen on CT of the abdomen and pelvis U/S interpreted by me (1pt. min.). @ -None done What testing was considered but not performed or refused? (CT, X-rays, U/S, labs)? Why? @ -None What meds were considered but not given or refused? Why? @ -None Did you discuss the management of the patient with other professionals (professionals i.e. , PA, [employer] ATTENDANT, lab, RT, psych nurse, social human services assistants, dietary aid, teacher, identification officer, bottle caser)? Give summary @ -No Was smoking cessation discussed for >3mins.? @ -No Was critical care preformed (if so, how long)? @ -No Were there social determinants of health that impacted care today? How? (Homelessness, low income, unemployed, alcoholism, drug addiction, transportation, low edu. Level, literacy, decrease access to med. care, fpc, rehab)? @ -No Was there de-escalation of care discussed even if they declined (Discuss DNR or withdrawal of care, Hospice)? DNR status @ -No What co-morbidities impacted this encounter? (DM, HTN, Smoking, COPD, CAD, Cancer, CVA, ARF, Chemo, Hep., AIDS, mental health diagnosis, sleep apnea, morb id obesity)? @ -None Was patient admitted / discharged? Hospital course, mention meds given and rou te, prescriptions, significant lab abnormalities, going to OR and other pertinent info. @ -53-year-old male presenting with chief complaint of blood present in the stool today. States he has had abdominal pain for 2 months. History and physical examination are conducted. Patient is hypertensive. Hemoglobin is stable at 15.2. Stool occult blood is negative. No acute process seen on CT of the abdomen and pelvis. On reassessment the patient is resting comfortably showing no acute signs of distress. He is educated on today's findings. Provided with suggestions for PCPs in the area. Follow-up with PCP. Report back to ER with any new or worsening symptoms. Discussed return parameters and answered all questions. Patient conveyed verbal understanding and agreed to the plan. I discussed this case in detail with my attending Dr. Rasheed Undiagnosed new problem with uncertain prognosis? @ -No Drug Therapy requiring intensive monitoring for toxicity (Heparin, Nitro, Insulin, Cardizem)? @ -No Were any procedures done? @ -No Diagnosis/symptom? @ -Abdominal pain Acute, or Chronic, or Acute on Chronic? @ -Acute Uncomplicated (without systemic symptoms) or Complicated (systemic symptoms)? @ -Uncomplicated Side effects of treatment? @ -No Exacerbation, Progression, or Severe Exacerbation? @ -No Poses a threat to life or bodily function? How? (Chest pain, USA, SC, pneumonia, PE, COPD, DKA, ARF, appy, cholecystitis, CVA, Diverticulitis, Homicidal, Suicidal, threat to staff... and all critical care pts) @ -Unlikely - Lab Data Result diagrams: 11/17/24 22:51 11/17/24 22:51 Lab Results 11/17/24 11/17/24 11/17/24 Range/Units 22:51 22:51 22:51 WBC 5.48 (4.50-10.00) 10*3/uL RBC 4.70 (4.40-5.60) 10*6/uL Hgb 15.2 (13.0-17.0) g/dL Hct 41.2 (39.6-50.0) % MCV 87.7 (80.0-97.0) fL MCH 32.3 H (27.0-32.0) pg MCHC 36.9 (32.0-37.0) g/dL Plt Count 232 (140-440) 10*3/uL MPV 9.7 (9.5-12.2) fL Immature Gran % (Auto) 0.4 % Neutrophils % 57.1 % Lymphocytes % 29.7 % Monocytes % 8.8 % Eosinophils % 3.3 % Basophils % 0.7 % Immature Gran # 0.02 (0.00-0.04) 10*3/uL Neutrophils # 3.13 (1.80-7.70) 10*3/uL Lymphocytes # 1.63 (0.90-5.00) 10*3/uL Monocytes # 0.48 (0.20-1.00) 10*3/uL Eosinophils # 0.18 (0.04-0.35) 10*3/uL Basophils # 0.04 (0.00-0.10) 10*3/uL PT 10.9 (10.0-12.5) sec INR 1.0 (<1.2) APTT 21.9 L (22.0-30.0) sec Sodium 133 L (137-145) mmol/L Potassium 3.6 (3.5-5.1) mmol/L Chloride 102 (98-107) mmol/L Carbon Dioxide 20 L (22-30) mmol/L Anion Gap 11 mmol/L BUN 11 (9-20) mg/dL Creatinine 1.16 (0.66-1.25) mg/dL Est GFR (CKD-EPI)AfAm 83 (>60 ml/min/1.73 sqM) Est GFR (CKD-EPI)NonAf 72 (>60 ml/min/1.73 sqM) Glucose 273 H (74-99) mg/dL Plasma Lactic Acid Preston (0.7-2.0) mmol/L Calcium 8.6 (8.4-10.2) mg/dL Magnesium 1.7 (1.6-2.3) mg/dL Total Bilirubin 1.0 (0.2-1.3) mg/dL AST 22 (17-59) U/L ALT 31 (4-49) U/L Alkaline Phosphatase 90 (38-126) U/L Total Protein 6.5 (6.3-8.2) g/dL Albumin 3.9 (3.5-5.0) g/dL Lipase 68 (23-300) U/L Stool Occult Blood (Negative) 11/17/24 11/17/24 Range/Units 22:51 23:29 WBC (4.50-10.00) 10*3/uL RBC (4.40-5.60) 10*6/uL Hgb (13.0-17.0) g/dL Hct (39.6-50.0) % MCV (80.0-97.0) fL MCH (27.0-32.0) pg MCHC (32.0-37.0) g/dL Plt Count (140-440) 10*3/uL MPV (9.5-12.2) fL Immature Gran % (Auto) % Neutrophils % % Lymphocytes % % Monocytes % % Eosinophils % % Basophils % % Immature Gran # (0.00-0.04) 10*3/uL Neutrophils # (1.80-7.70) 10*3/uL Lymphocytes # (0.90-5.00) 10*3/uL Monocytes # (0.20-1.00) 10*3/uL Eosinophils # (0.04-0.35) 10*3/uL Basophils # (0.00-0.10) 10*3/uL PT (10.0-12.5) sec INR (<1.2) APTT (22.0-30.0) sec Sodium (137-145) mmol/L Potassium (3.5-5.1) mmol/L Chloride (98-107) mmol/L Carbon Dioxide (22-30) mmol/L Anion Gap mmol/L BUN (9-20) mg/dL Creatinine (0.66-1.25) mg/dL Est GFR (CKD-EPI)AfAm (>60 ml/min/1.73 sqM) Est GFR (CKD-EPI)NonAf (>60 ml/min/1.73 sqM) Glucose (74-99) mg/dL Plasma Lactic Acid Preston 1.6 (0.7-2.0) mmol/L Calcium (8.4-10.2) mg/dL Magnesium (1.6-2.3) mg/dL Total Bilirubin (0.2-1.3) mg/dL AST (17-59) U/L ALT (4-49) U/L Alkaline Phosphatase (38-126) U/L Total Protein (6.3-8.2) g/dL Albumin (3.5-5.0) g/dL Lipase (23-300) U/L Stool Occult Blood Negative (Negative) Disposition Clinical Impression: Abdominal pain Disposition: HOME SELF-CARE Condition: Good Instructions (If sedation given, give patient instructions): Gastrointestinal Bleeding (ED), Abdominal Pain (ED) Additional Instructions: Follow-up with PCP. Report back to ER with any new or worsening symptoms. Is patient prescribed a controlled substance at d/c from ED?: No Referrals: None,Stated [Primary Care Provider] - 1-2 days [facility] [Provider Group] - 1-2 days [facility] [Provider Group] - 1-2 days [facility] [Provider Group] - 1-2 days Forms: Area PCPs Time of Disposition: 00:18
[2024-11-18 00:30] VITALS: BP 190/95; PULSE 69; RESP 17
== END 2024-11-18 00:29 | disposition home or self-care (01) ==
LOC: EC 22:07
DX: R10.9 Unspecified abdominal pain (principal); R19.5 Other fecal abnormalities; I10 Essential (primary) hypertension
CPT/HCPCS: 36415; 80053; 83605; 83690; 83735; 85025; 85610; 85730; 82272; 74177; 99285; 96360; Q9967